=== PATIENT | female | born 1965 | race Caucasian/White ===

== ENCOUNTER 2019-03-16 07:48 | Day surgery (SDC) | payer BC ==
[~2019-03-16 07:48] MED LIST: Lactated Ringers 1,000 ML IV SCH
--- NOTE | 2019-03-16 08:44 | PCM.PREANE ---
Preanesthetic Assessment - Anesthesia/Transfusion/Family Hx Anesthesia History: Prior Anesthesia Without Reaction Family History of Anesthesia Reaction: No Transfusion History: No Prior Transfusion(s) - Review of Systems General: No Symptoms Pulmonary: Cough Cardiovascular: No Symptoms Gastrointestinal: No Symptoms Neurological: No Symptoms Other: Reports: None - Physical Assessment Height: 5 ft 5 in Weight: 64.864 kg ASA Class: 2 Mental Status: Alert & Oriented x3 Airway Class: Mallampati = 2 Dentition: Reports: Normal Dentition ROM/Head Extension: Full Lungs: Clear to Auscultation, Normal Respiratory Effort Cardiovascular: Regular Rate, Regular Rhythm - Allergies Allergies/Adverse Reactions: Allergies Allergy/AdvReac Type Severity Reaction Status Date / Time No Known Allergies Allergy Verified 03/13/19 11:33 - Blood Blood Available: No - Anesthesia Plan Pre-Op Medication Ordered: None - Acknowledgements Anesthesia Type Planned: General Anesthesia Pt an Appropriate Candidate for the Planned Anesthesia: Yes Alternatives and Risks of Anesthesia Discussed w Pt/Guardian: Yes Pt/Guardian Understands and Agrees with Anesthesia Plan: Yes Additional Comments: PMH: asthma-stable, smoker PLAN: tiva PreAnesthesia Questionnaire HEENT History: Reports: None Cardiovascular History: Reports: None Respiratory History: Reports: Asthma Gastrointestinal History: Reports: Other (See Below) Other Gastrointestinal History: dysphagia Genitourinary History: Reports: None Musculoskeletal History: Reports: None Neurological History: Reports: None Psychiatric History: Reports: Anxiety, Depression Endocrine/Metabolic History: Reports: None Hematologic History: Reports: None Immunologic History: Reports: None Oncologic (Cancer) History: Reports: None Dermatologic History: Reports: None - Past Surgical History Head Surgeries/Procedures: Reports: None HEENT Surgical History: Reports: None Cardiovascular Surgical History: Reports: None Respiratory Surgical History: Reports: None GI Surgical History: Reports: None Female Surgical History: Reports: None Neurological Surgical History: Reports: None Musculoskeletal Surgical History: Reports: Carpal Tunnel, Other (See Below) Other Musculoskeletal Surgeries/Procedures:: ham bunionectomy, hx left knee surgery Oncologic Surgical History: Reports: None Dermatological Surgical History: Reports: None - SUBSTANCE USE Smoking Status *Q: Former Smoker Tobacco Use Within Last Twelve Months: Cigarettes Recreational Drug Use History: No - HOME MEDS Home Medications: Home Meds Albuterol Sulfate [Albuterol Sulfate Hfa] 2 puff INH ASDIRECTED PRN 03/13/19 [ History] Budesonide/Formoterol Fumarate [Symbicort 160-4.5 Mcg Inhaler] 2 puff INH DAILY 03/13/19 [History] Escitalopram Oxalate 15 mg PO DAILY 03/13/19 [History] LORazepam 0.5 mg PO BID PRN 03/13/19 [History] Varenicline Tartrate [Chantix] 1 mg PO DAILY 03/13/19 [History] busPIRone [Buspar] 10 mg PO DAILY 03/13/19 [History] - CURRENT (IN HOUSE) MEDS Current Meds: Current Medications Lactated Ringer's (Ringers, Lactated) 1,000 mls @ 125 mls/hr IV ASDIRECTED OSVALDO
[2019-03-16] MEDS ORDERED: Lidocaine 2% 5 ML SDV ONE (08:57)
[2019-03-16] MEDS ORDERED: Propofol 200 MG/20 ML SDV ONE ×2 (08:58→10:13)
--- NOTE | 2019-03-16 10:41 | PCM.OPNOTE ---
- General Post-Op/Procedure Note Date of Surgery/Procedure: 03/16/19 Operative Procedure(s): gastroscopy w bx and colonoscopy Findings: see dict [id number] Pre Op Diagnosis: hx of polyp and dysphagia Post-Op Diagnosis: Same Anesthesia Technique: Moderate Sedation Primary Surgeon: Arpit Oviedo Pathology: egd bx Complications: None Condition: Good
--- NOTE | 2019-03-16 11:46 | OR ---
SURGEON: Arpit Oviedo MD DATE OF PROCEDURE: 03/16/2019 PREOPERATIVE DIAGNOSES: History of colon polyp and dysphagia. PROCEDURES PERFORMED: Esophagogastroduodenoscopy with biopsy and colonoscopy. DESCRIPTION OF PROCEDURE: EGD: The patient was taken to the endoscopy room, and with the EXTERNAL RELATIONS DIRECTOR, Diprivan was administered. A well-lubricated EGD scope was gently inserted through the oropharynx, down the esophagus, passing through the gastroesophageal junction, into the stomach. The mucosa was examined upon the passage. Any etiology will be noted. Once in the stomach, we continued to advance to the distal antrum, passed through the pylorus into the second portion of the duodenum. Again, the mucosa was examined for any abnormality and etiology. The scope was then retrieved back to the stomach and then retroflexed to look at the fundus of the stomach. If a biopsy was indicated, we will biopsy the antrum, body, and gastroesophageal junction. The air will be sucked out while the scope is retrieved to reduce the patient's discomfort. The patient tolerated the procedure well. There were no intraoperative complications. Dr. Oviedo was present through the whole procedure. Prior to surgery, a time-out had been called, the patient identified, procedure identified and antibiotic administered. The patient was taken to the endoscopy room. A time out was called, patient identified, and procedure identified. Diprivan was then administrated. Patient went from awake to sleep, hearing doctor talking or door closing is normal. Perineum inspection and digital examination were then performed. A well- lubricated colonoscope was gently inserted through the rectum, advanced past the rectosigmoid junction, the descending colon, splenic flexure, transverse colon, hepatic flexure, ascending colon, arrived to the cecum. Cecum was identified as dictated in the finding. Then the scope was carefully withdrawn while attention was paid to the mucosal surface for any abnormality. Air will be sucked out during the scope withdrawal. At the rectum, retroflexed to examine any rectal diseases, fistula or hemorrhoids. Patient tolerated procedure well. There were no intraoperative complications, and Dr. Oviedo was present throughout the whole procedure. FINDINGS: EGD findings: 1. The patient is easily sedated with EXTERNAL RELATIONS DIRECTOR and Diprivan, the patient is soundly snoring. 2. Oropharynx and proximal esophagus are free of disease, stricture, inflammation. Distal esophagus at GE junction at 40 shows some mild salmon- colored change suggestive of mild acid reflux. Stomach rugae are normal in appearance. Antrum is a little bit inflamed, mild gastritis. Duodenum is grossly normal. Retroflexed look at the fundus of stomach, there is no hiatal hernia. Biopsy done at antrum, body, GE junction at 40 and sucked out the gas while scope coming out. During the whole study, there is no ulcer observed. A few drop of blood, not blood clot. No bile. No food particle. Colonoscopy findings: 1. The patient is easily sedated with EXTERNAL RELATIONS DIRECTOR and Diprivan, the patient is soundly snoring. 2. Bowel prep is average with a large amount of liquid stool, no semi-formed stool. 3. Colon is rather tortuous at the sigmoid colon requiring some maneuver in order to get to the cecum. Cecum indicated by ileocecal fold, one-to-one indentation, light emittance, and appendiceal orifice. ScopeGuide is pointing south. Mucosa examined upon scope pulling out with constant irrigation. The patient does not have diverticulosis, polyp, mass, growth, inflammation, stricture, ulceration, AV malformation, none of those. The patient has mild anal tag and mild internal hemorrhoid and no external hemorrhoid. The patient would benefit from repeat colonoscopy in 10 years from today or if clinically indicated otherwise. CHARANJIT / GLORY /[id number]
--- NOTE | 2019-03-16 12:25 | PCM.POSTAN ---
POST ANESTHESIA ASSESSMENT - MENTAL STATUS Mental Status: Alert, Oriented - VITAL SIGNS Vital Signs: Last Vital Signs Temp 97.9 F 03/16/19 11:00 Pulse 86 03/16/19 11:00 Resp 14 03/16/19 11:00 BP 121/63 03/16/19 11:00 Pulse Ox 96 03/16/19 11:00 - RESPIRATORY Respiratory Status: Respiratory Rate WNL, Airway Patent, O2 Saturation Stable - CARDIOVASCULAR CV Status: Pulse Rate WNL, Blood Pressure Stable - GASTROINTESTINAL GI Status: No Symptoms - POST OP HYDRATION Hydration Status: Adequate & Stable
--- NOTE | 2019-03-16 12:26 | PCM48HPAN ---
Post Anesthesia Note - EVALUATION WITHIN 48HRS OF ANESTHETIC Vital Signs in Normal Range: Yes Patient Participated in Evaluation: Yes Respiratory Function Stable: Yes Airway Patent: Yes Cardiovascular Function Stable: Yes Hydration Status Stable: Yes Pain Control Satisfactory: Yes Nausea and Vomiting Control Satisfactory: Yes Mental Status Recovered: Yes Vital Signs: Last Vital Signs Temp 97.9 F 03/16/19 11:00 Pulse 86 03/16/19 11:00 Resp 14 03/16/19 11:00 BP 121/63 03/16/19 11:00 Pulse Ox 96 03/16/19 11:00
== END 2019-03-16 11:25 | disposition home or self-care (01) ==
LOC: MW.SDS 07:48
PROVIDERS: ATTEND Surgery
DX: K29.70 Gastritis, unspecified, without bleeding (principal); K64.4 Residual hemorrhoidal skin tags; K64.8 Other hemorrhoids; J45.909 Unspecified asthma, uncomplicated; F17.210 Nicotine dependence, cigarettes, uncomplicated; F32.9 Major depressive disorder, single episode, unspecified; F41.9 Anxiety disorder, unspecified; Z86.010 Personal history of colon polyps
CPT/HCPCS: 36415; 43239; 45378; 81025; 84702; 84703; J2001; J2704; J7120; 88305; 88312

== ENCOUNTER 2019-04-30 13:19 | Observation (INO) | payer BC ==
[2019-04-30] MEDS ORDERED: Albuterol/Ipratropium 3.0-0.5 MG/3 ML Neb Soln ONE ×2 (13:23→13:32)
[2019-04-30] MEDS ORDERED: Albuterol/Ipratropium 3.0-0.5 MG/3 ML Neb Soln NEB ONE ×3 (13:35→14:28)
[2019-04-30] MEDS ORDERED: methylPREDNISolone Sodium Succinate 125 MG/2 ML SDV IVPUSH ONE (13:35)
--- NOTE | 2019-04-30 13:35 | EDM.PDOC ---
ED HPI GENERAL MEDICAL PROBLEM - General Chief Complaint: Respiratory Problem Stated Complaint: TROUBLE BREATHING Time Seen by Provider: 04/30/19 13:35 Source of Information: Reports: Patient History Limitations: Reports: No Limitations - History of Present Illness INITIAL COMMENTS - FREE TEXT/NARRATIVE: HISTORY AND PHYSICAL: History of present illness: Patient is a 53-year-old female presents to the ED with complaint of shortness of breath. Patient has history of asthma on symbicort and rescue inhaler. She states she has been out of her symbicort for a few days but did not realize it and was using the inhaler. She denies cough, fevers, chills, chest pain. O2 on arrival 78%. Review of systems: As per history of present illness and below otherwise all systems reviewed and negative. Past medical history: As per history of present illness and as reviewed below otherwise noncontributory. Surgical history: As per history of present illness and as reviewed below otherwise noncontributory. Social history: No reported history of drug or alcohol abuse. Family history: As per history of present illness and as reviewed below otherwise noncontributory. Physical exam: General: Patient sitting comfortably in no acute distress and nontoxic appearing HEENT: Atraumatic, normocephalic, pupils reactive, negative for conjunctival pallor or scleral icterus, mucous membranes moist, throat clear, neck supple, nontender, trachea midline. No meningeal signs. Lungs: Breath sounds diminished with wheezing throughout all lung izaguirre. Heart: S1S2, regular, negative for clicks, rubs, or overt murmur. Abdomen: Soft, nondistended, nontender. Negative for masses or hepatosplenomegaly. Negative for costovertebral tenderness. No rigidity, rebound , guarding. Pelvis: Stable nontender. Genitourinary: Deferred. Rectal: Deferred. Extremities: Atraumatic, negative for cords or calf pain. Neurovascular unremarkable. Neuro: Awake, alert, oriented. Cranial nerves II through XII unremarkable. Cerebellum unremarkable. Motor and sensory unremarkable throughout. Exam nonfocal. Notes: Patient O2 is low 90s on 2L. She dropped to 87% when turned off. Diagnostics: CBC, CMP, CXR Therapeutics: DuoNeb x 3 125mg Solumedrol IM Prescriptions: Impression: Hypoxia, asthma exacerbation Plan: Discussed with the hospitalist resident, patient accepted for observation for hypoxia and asthma exacerbation. Definitive disposition and diagnosis as appropriate pending reevaluation and review of above. - Related Data Allergies Allergy/AdvReac Type Severity Reaction Status Date / Time No Known Allergies Allergy Verified 04/30/19 13:29 Home Meds: Home Meds Albuterol Sulfate [Albuterol Sulfate Hfa] 2 puff INH ASDIRECTED PRN 03/13/19 [ History] Budesonide/Formoterol Fumarate [Symbicort 160-4.5 Mcg Inhaler] 2 puff INH DAILY 03/13/19 [History] Escitalopram Oxalate 15 mg PO DAILY 03/13/19 [History] Varenicline Tartrate [Chantix] 1 mg PO DAILY 03/13/19 [History] busPIRone [Buspar] 10 mg PO DAILY 03/13/19 [History] Montelukast [Singulair] 10 mg PO DAILY 04/30/19 [History] Past Medical History HEENT History: Reports: None Cardiovascular History: Reports: None Respiratory History: Reports: Asthma, COPD Gastrointestinal History: Reports: Other (See Below) Other Gastrointestinal History: dysphagia Genitourinary History: Reports: None Musculoskeletal History: Reports: None Neurological History: Reports: None Psychiatric History: Reports: Anxiety, Depression Endocrine/Metabolic History: Reports: None Hematologic History: Reports: None Immunologic History: Reports: None Oncologic (Cancer) History: Reports: None Dermatologic History: Reports: None - Infectious Disease History Infectious Disease History: Reports: Chicken Pox - Past Surgical History Head Surgeries/Procedures: Reports: None HEENT Surgical History: Reports: None Cardiovascular Surgical History: Reports: None Respiratory Surgical History: Reports: None GI Surgical History: Reports: None Female Surgical History: Reports: None Neurological Surgical History: Reports: None Musculoskeletal Surgical History: Reports: Carpal Tunnel, Other (See Below) Other Musculoskeletal Surgeries/Procedures:: ham bunionectomy, hx left knee surgery Oncologic Surgical History: Reports: None Dermatological Surgical History: Reports: None Social & Family History - Family History Family Medical History: Noncontributory - Tobacco Use Smoking Status *Q: Former Smoker Used Tobacco, but Quit: Yes Month/Year Tobacco Last Used: 2 months - Recreational Drug Use Recreational Drug Use: No ED ROS GENERAL - Review of Systems Review Of Systems: Comprehensive ROS is negative, except as noted in HPI. ED EXAM, GENERAL - Physical Exam Exam: See Below (see dictation) Course - Vital Signs Last Recorded V/S: Last Vital Signs Temp 97.8 F 04/30/19 13:26 Pulse 90 04/30/19 15:10 Resp 14 04/30/19 15:10 BP 113/70 04/30/19 15:10 Pulse Ox 87 L 04/30/19 15:10 - Orders/Labs/Meds Orders: Active Orders 24 hr Category Date Time Status Admission Status [Patient Status] [ADT] Stat ADT 04/30/19 16:11 Ordered RT Aerosol Therapy [RC] ASDIRECTED Care 04/30/19 13:35 Active RT Aerosol Therapy [RC] ASDIRECTED Care 04/30/19 13:36 Active RT Aerosol Therapy [RC] ASDIRECTED Care 04/30/19 14:28 Active Labs: Laboratory Tests 04/30/19 04/30/19 Range/Units 13:47 13:47 WBC 8.66 (4.0-11.0) K/uL RBC 4.97 (4.30-5.90) M/uL Hgb 15.7 (12.0-16.0) g/dL Hct 47.3 H (36.0-46.0) % MCV 95.2 (80.0-98.0) fL MCH 31.6 (27.0-32.0) pg MCHC 33.2 (31.0-37.0) g/dL RDW Std Deviation 46.4 (28.0-62.0) fl RDW Coeff of Rudy 13 (11.0-15.0) % Plt Count 311 (150-400) K/uL MPV 10.00 (7.40-12.00) fL Neut % (Auto) 41.4 L (48.0-80.0) % Lymph % (Auto) 40.2 H (16.0-40.0) % Archuleta % (Auto) 6.5 (0.0-15.0) % Eos % (Auto) 11.2 H (0.0-7.0) % Baso % (Auto) 0.7 (0.0-1.5) % Neut # (Auto) 3.6 (1.4-5.7) K/uL Lymph # (Auto) 3.5 H (0.6-2.4) K/uL Archuleta # (Auto) 0.6 (0.0-0.8) K/uL Eos # (Auto) 1.0 H (0.0-0.7) K/uL Baso # (Auto) 0.1 (0.0-0.1) K/uL Nucleated RBC % 0.0 /100WBC Nucleated RBCs # 0 K/uL Sodium 143 (136-145) mmol/L Potassium 4.1 (3.5-5.1) mmol/L Chloride 107 (98-107) mmol/L Carbon Dioxide 26.4 (21.0-32.0) mmol/L BUN 10 (7.0-18.0) mg/dL Creatinine 1.0 (0.6-1.0) mg/dL Est Cr Clr Drug Dosing 57.87 mL/min Estimated GFR (MDRD) 57.8 ml/min Glucose 101 (74-106) mg/dL Calcium 10.1 (8.5-10.1) mg/dL Total Bilirubin 0.3 (0.2-1.0) mg/dL AST 23 (15-37) IU/L ALT 28 (14-63) IU/L Alkaline Phosphatase 80 (46-116) U/L Total Protein 8.5 H (6.4-8.2) g/dL Albumin 4.4 (3.4-5.0) g/dL Globulin 4.1 H (2.6-4.0) g/dL Albumin/Globulin Ratio 1.1 (0.9-1.6) Meds: Medications Discontinued Medications Generic Name Dose Route Start Last Admin Trade Name Alfonsoq PRN Reason Stop Dose Admin Albuterol/Ipratropium Confirm 04/30/19 13:23 04/30/19 13:35 Duoneb 3.0-0.5 Mg/3 Ml Administered 04/30/19 13:24 3 ml Dose Administration 3 ml .ROUTE .STK-MED ONE Albuterol/Ipratropium Confirm 04/30/19 13:32 04/30/19 13:35 Duoneb 3.0-0.5 Mg/3 Ml Administered 04/30/19 13:33 3 ml Dose Administration 3 ml .ROUTE .STK-MED ONE Albuterol/Ipratropium 3 ml 04/30/19 13:35 04/30/19 13:36 Duoneb 3.0-0.5 Mg/3 Ml NEB 04/30/19 13:36 Not Given ONETIME ONE Albuterol/Ipratropium 3 ml 04/30/19 13:35 04/30/19 13:36 Duoneb 3.0-0.5 Mg/3 Ml NEB 04/30/19 13:36 Not Given ONETIME ONE Albuterol/Ipratropium 3 ml 04/30/19 14:28 04/30/19 14:35 Duoneb 3.0-0.5 Mg/3 Ml NEB 04/30/19 14:29 3 ml ONETIME ONE Administration Methylprednisolone Sodium Succinate 125 mg 04/30/19 13:35 04/30/19 13:59 Solu-Medrol IVPUSH 04/30/19 13:36 125 mg ONETIME ONE Administration Departure - Departure Time of Disposition: 16:13 Disposition: Refer to Observation Condition: Good Clinical Impression: Hypoxia, Asthma exacerbation - Discharge Information Referrals: PCP,Unknown [Primary Care Provider] - Forms: ED Department Discharge - My Orders Last 24 Hours: My Active Orders 04/30/19 13:35 RT Aerosol Therapy [RC] ASDIRECTED 04/30/19 13:36 RT Aerosol Therapy [RC] ASDIRECTED 04/30/19 14:28 RT Aerosol Therapy [RC] ASDIRECTED 04/30/19 16:11 Admission Status [Patient Status] [ADT] Stat - Assessment/Plan Last 24 Hours: My Active Orders 04/30/19 13:35 RT Aerosol Therapy [RC] ASDIRECTED 04/30/19 13:36 RT Aerosol Therapy [RC] ASDIRECTED 04/30/19 14:28 RT Aerosol Therapy [RC] ASDIRECTED 04/30/19 16:11 Admission Status [Patient Status] [ADT] Stat
--- NOTE | 2019-04-30 14:16 | CR ---
Chest: Portable view of the chest was obtained. Comparison: No prior chest x-ray. Questionable nodular densities are noted within both lung bases located medially. Uncertain if this is parenchymal in location or represents artifact. Lungs otherwise are clear. Bony structures are grossly intact. Heart size and mediastinum are normal. Impression: 1. Nodular densities as noted above. Recommend PA and lateral chest x-ray to further evaluate. Noncontrast chest CT could alternatively be obtained. 2. Nothing acute is otherwise seen. Diagnostic code #9 [id number]
[2019-04-30 14:28] LABS: CARBON DIOXIDE,CO2 26.4 mmol/L (21.0-32.0); POTASSIUM,K 4.1 mmol/L (3.5-5.1)
[2019-04-30] MEDS ORDERED: Ondansetron 4 MG Tab.DIS PO PRN (16:26)
[2019-04-30] MEDS ORDERED: Ondansetron 4 MG/2 ML SDV IVPUSH PRN (16:26)
[2019-04-30] MEDS ORDERED: Acetaminophen 325 MG Tab PO PRN (16:26)
[2019-04-30] MEDS ORDERED: Albuterol/Ipratropium 3.0-0.5 MG/3 ML Neb Soln NEB SCH (16:45)
[2019-04-30] MEDS: Enoxaparin 40 MG/0.4 ML Syringe SUBCUT SCH (17:30)
[2019-04-30] MEDS: methylPREDNISolone Sodium Succinate 40 MG/1 ML SDV IV SCH (17:31)
[2019-04-30] MEDS: Albuterol/Ipratropium 3.0-0.5 MG/3 ML Neb Soln NEB SCH ×2 (17:48→21:33)
--- NOTE | 2019-04-30 18:42 | PCM.HP.2 ---
<Asim Jones M - Last Filed: 04/30/19 18:37> H&P History of Present Illness - General Date of Service: 04/30/19 Admit Problem/Dx: Admission Diagnosis/Problem Admission Diagnosis/Problem Hypoxia Source of Information: Patient History Limitations: Reports: No Limitations - History of Present Illness Initial Comments - Free Text/Narative: 53-year-old female admitted for acute asthma exacerbation. She complains of SOB for the past 4-5 days. She ran out of her symbicort inhaler and has had to use her albuterol inhaler much more frequently. No recent history of immobility. Denies fevers, chills, chest pain nausea, vomiting, diarrhea, blood in stool or blood in urine. In the ER patient was found to be hypoxic with an O2 sat of 78%. She received 3 doses of duonebs and 1 dose of IV solumedrol 125 mg in the ER. CXR was negative for any acute process. Patient was still requiring 2L of supplemental oxygen and was admitted for further evaluation. - Related Data Allergies/Adverse Reactions: Allergies Allergy/AdvReac Type Severity Reaction Status Date / Time No Known Allergies Allergy Verified 04/30/19 16:48 Home Medications: Home Meds Escitalopram Oxalate 15 mg PO DAILY 03/13/19 [History] busPIRone [Buspar] 10 mg PO DAILY 03/13/19 [History] Montelukast [Singulair] 10 mg PO DAILY 04/30/19 [History] Albuterol Sulfate [Albuterol Sulfate Hfa] 2 puff INH Q4H PRN 30 Days #1 hfa.aer.ad 05/02/19 [Rx] Albuterol [Proventil Neb Soln] 0.63 mg NEB Q4HRRT PRN 30 Days #10 neb 05/02/19 [ Rx] Budesonide/Formoterol Fumarate [Symbicort 160-4.5 Mcg Inhaler] 2 puff INH DAILY 30 Days #1 hfa.aer.ad 05/02/19 [Rx] predniSONE [Prednisone] 40 mg PO DAILY 4 Days #8 tablet 05/02/19 [Rx] Past Medical History HEENT History: Reports: None Cardiovascular History: Reports: None Respiratory History: Reports: Asthma, COPD Gastrointestinal History: Reports: Other (See Below) Other Gastrointestinal History: dysphagia Genitourinary History: Reports: None Musculoskeletal History: Reports: None Neurological History: Reports: None Psychiatric History: Reports: Anxiety, Depression Endocrine/Metabolic History: Reports: None Hematologic History: Reports: None Immunologic History: Reports: None Oncologic (Cancer) History: Reports: None Dermatologic History: Reports: None - Infectious Disease History Infectious Disease History: Reports: Chicken Pox, Shingles - Past Surgical History Head Surgeries/Procedures: Reports: None HEENT Surgical History: Reports: None Cardiovascular Surgical History: Reports: None Respiratory Surgical History: Reports: None GI Surgical History: Reports: None Female Surgical History: Reports: None Neurological Surgical History: Reports: None Musculoskeletal Surgical History: Reports: Carpal Tunnel, Other (See Below) Other Musculoskeletal Surgeries/Procedures:: ham bunionectomy, hx left knee surgery Oncologic Surgical History: Reports: None Dermatological Surgical History: Reports: None Social & Family History - Family History Family Medical History: Noncontributory - Tobacco Use Smoking Status *Q: Former Smoker Used Tobacco, but Quit: Yes Month/Year Tobacco Last Used: 6 Second Hand Smoke Exposure: No - Caffeine Use Caffeine Use: Reports: Coffee - Recreational Drug Use Recreational Drug Use: No H&P Review of Systems - Review of Systems: Review Of Systems: Comprehensive ROS is negative, except as noted in HPI. Exam - Exam Exam: See Below - Vital Signs Vital Signs: Last Vital Signs Temp 97.2 F 04/30/19 16:57 Pulse 81 04/30/19 16:57 Resp 18 04/30/19 16:57 BP 120/63 04/30/19 16:57 Pulse Ox 96 04/30/19 16:57 Weight: 64.7 kg - Exam General: Alert, Oriented, Cooperative, Mild Distress HEENT: Conjunctiva Clear, EOMI, Hearing Intact, Posterior Pharynx Clear, Pupils Reactive Neck: Supple, Trachea Midline Lungs: Other (poor aeration bilaterally) Cardiovascular: Regular Rate, Regular Rhythm GI/Abdominal Exam: Normal Bowel Sounds, Soft, Non-Tender, No Distention Extremities: Normal Inspection, No Pedal Edema Peripheral Pulses: 2+: Posterior Tibial (L), Posterior Tibial (R) Skin: Warm, Dry, Intact Neurological: Cranial Nerves Intact, Strength Equal Bilateral, Normal Tone, Sensation Intact Neuro Extensive - Mental Status: Alert, Oriented x3, Normal Mood/Affect Psychiatric: Alert, Normal Affect, Normal Mood - Patient Data Lab Results Last 24 hrs: Laboratory Results - last 24 hr 04/30/19 04/30/19 Range/Units 13:47 13:47 WBC 8.66 (4.0-11.0) K/uL RBC 4.97 (4.30-5.90) M/uL Hgb 15.7 (12.0-16.0) g/dL Hct 47.3 H (36.0-46.0) % MCV 95.2 (80.0-98.0) fL MCH 31.6 (27.0-32.0) pg MCHC 33.2 (31.0-37.0) g/dL RDW Std Deviation 46.4 (28.0-62.0) fl RDW Coeff of Rudy 13 (11.0-15.0) % Plt Count 311 (150-400) K/uL MPV 10.00 (7.40-12.00) fL Neut % (Auto) 41.4 L (48.0-80.0) % Lymph % (Auto) 40.2 H (16.0-40.0) % Sanborn % (Auto) 6.5 (0.0-15.0) % Eos % (Auto) 11.2 H (0.0-7.0) % Baso % (Auto) 0.7 (0.0-1.5) % Neut # (Auto) 3.6 (1.4-5.7) K/uL Lymph # (Auto) 3.5 H (0.6-2.4) K/uL Sanborn # (Auto) 0.6 (0.0-0.8) K/uL Eos # (Auto) 1.0 H (0.0-0.7) K/uL Baso # (Auto) 0.1 (0.0-0.1) K/uL Nucleated RBC % 0.0 /100WBC Nucleated RBCs # 0 K/uL Sodium 143 (136-145) mmol/L Potassium 4.1 (3.5-5.1) mmol/L Chloride 107 (98-107) mmol/L Carbon Dioxide 26.4 (21.0-32.0) mmol/L BUN 10 (7.0-18.0) mg/dL Creatinine 1.0 (0.6-1.0) mg/dL Est Cr Clr Drug Dosing 57.87 mL/min Estimated GFR (MDRD) 57.8 ml/min Glucose 101 (74-106) mg/dL Calcium 10.1 (8.5-10.1) mg/dL Total Bilirubin 0.3 (0.2-1.0) mg/dL AST 23 (15-37) IU/L ALT 28 (14-63) IU/L Alkaline Phosphatase 80 (46-116) U/L Total Protein 8.5 H (6.4-8.2) g/dL Albumin 4.4 (3.4-5.0) g/dL Globulin 4.1 H (2.6-4.0) g/dL Albumin/Globulin Ratio 1.1 (0.9-1.6) Result Diagrams: 04/30/19 13:47 04/30/19 13:47 Problem List Initiated/Reviewed/Updated: Yes Orders Last 24hrs: Active Orders 24 hr Category Date Time Status Admission Status [Patient Status] [ADT] Stat ADT 04/30/19 16:11 Active Oxygen Therapy [RC] PRN Care 04/30/19 16:26 Active RT Aerosol Therapy [RC] ASDIRECTED Care 04/30/19 16:32 Active Up ad Zuleika [RC] ASDIRECTED Care 04/30/19 16:26 Active VTE/DVT Education [RC] PER UNIT ROUTINE Care 04/30/19 16:26 Active Vital Signs [RC] Q4H Care 04/30/19 16:26 Active Regular Diet [DIET] Diet 04/30/19 Dinner Active Acetaminophen [Tylenol] Med 04/30/19 16:26 Active 650 mg PO Q4H PRN Albuterol/Ipratropium [DuoNeb 3.0-0.5 MG/3 ML] Med 04/30/19 18:00 Active 3 ml NEB Q4H Enoxaparin [Lovenox] Med 04/30/19 16:30 Active 40 mg SUBCUT Q24H Escitalopram [Lexapro] Med 05/01/19 09:00 Active 15 mg PO DAILY Montelukast [Singulair] Med 04/30/19 21:00 Active 10 mg PO BEDTIME Ondansetron [Zofran ODT] Med 04/30/19 16:26 Active 4 mg PO Q4H PRN Ondansetron [Zofran] Med 04/30/19 16:26 Active 4 mg IVPUSH Q4H PRN Patient's Own Medication [Ptom] Med 05/01/19 09:00 Active 1 each PO DAILY busPIRone [Buspar] Med 05/01/19 09:00 Active 10 mg PO DAILY methylPREDNISolone Sod Succ [Solu-MEDROL] Med 04/30/19 16:45 Active 40 mg IV Q8H Resuscitation Status Routine Resus Stat 04/30/19 16:26 Ordered Medication Orders Acetaminophen (Tylenol) 650 mg PO Q4H PRN PRN Reason: Pain (Mild 1-3)/fever Albuterol/Ipratropium (Duoneb 3.0-0.5 Mg/3 Ml) 3 ml NEB Q4H [facility] Last Admin: 04/30/19 17:48 Dose: 3 ml Buspirone HCl (Buspar) 10 mg PO DAILY [facility] Enoxaparin Sodium (Lovenox) 40 mg SUBCUT Q24H [facility] Last Admin: 04/30/19 17:30 Dose: 40 mg Escitalopram Oxalate (Lexapro) 15 mg PO DAILY [facility] Methylprednisolone Sodium Succinate (Solu-Medrol) 40 mg IV Q8H [facility] Last Admin: 04/30/19 17:31 Dose: 40 mg Montelukast Sodium (Singulair) 10 mg PO BEDTIME [facility] Ondansetron HCl (Zofran Odt) 4 mg PO Q4H PRN PRN Reason: nausea, able to take PO Ondansetron HCl (Zofran) 4 mg IVPUSH Q4H PRN PRN Reason: Nausea Varenicline Tartrate ([Chantix] 1 Mg) 1 each PO DAILY [facility] Assessment/Plan Comment:: Assessment: 1. Acute hypoxic respiratory failure secondary to acute asthma exacerbation. Plan: 1. Will treat with Duonebs q4h, IV Solumedrol 40 mg q8h and singular 10 mg daily. Will attempt to wean off oxygen tomorrow. Repeat CBC, CMP in the AM. <August Ruvalcaba - Last Filed: 05/02/19 20:18> H&P History of Present Illness - General Admit Problem/Dx: Admission Diagnosis/Problem Admission Diagnosis/Problem Hypoxia Exam - Vital Signs Vital Signs: Last Vital Signs Temp 36.9 C 05/02/19 12:17 Pulse 82 05/02/19 12:17 Resp 16 05/02/19 12:17 BP 121/65 05/02/19 12:17 Pulse Ox 91 L 05/02/19 12:17 - Patient Data Lab Results Last 24 hrs: Laboratory Results - last 24 hr 05/02/19 05/02/19 Range/Units 05:10 05:10 WBC 18.63 H (4.0-11.0) K/uL RBC 4.34 (4.30-5.90) M/uL Hgb 13.5 (12.0-16.0) g/dL Hct 41.0 (36.0-46.0) % MCV 94.5 (80.0-98.0) fL MCH 31.1 (27.0-32.0) pg MCHC 32.9 (31.0-37.0) g/dL RDW Std Deviation 45.7 (28.0-62.0) fl RDW Coeff of Rudy 13 (11.0-15.0) % Plt Count 304 (150-400) K/uL MPV 10.00 (7.40-12.00) fL Neut % (Auto) 92.8 H (48.0-80.0) % Lymph % (Auto) 4.4 L (16.0-40.0) % Sanborn % (Auto) 2.8 (0.0-15.0) % Eos % (Auto) 0.0 (0.0-7.0) % Baso % (Auto) 0.0 (0.0-1.5) % Neut # (Auto) 17.3 H (1.4-5.7) K/uL Lymph # (Auto) 0.8 (0.6-2.4) K/uL Sanborn # (Auto) 0.5 (0.0-0.8) K/uL Eos # (Auto) 0.0 (0.0-0.7) K/uL Baso # (Auto) 0.0 (0.0-0.1) K/uL Nucleated RBC % 0.0 /100WBC Nucleated RBCs # 0 K/uL Sodium 140 (136-145) mmol/L Potassium 4.2 (3.5-5.1) mmol/L Chloride 106 (98-107) mmol/L Carbon Dioxide 27.1 (21.0-32.0) mmol/L BUN 14 (7.0-18.0) mg/dL Creatinine 1.0 (0.6-1.0) mg/dL Est Cr Clr Drug Dosing 57.87 mL/min Estimated GFR (MDRD) 57.8 ml/min Glucose 119 H (74-106) mg/dL Calcium 9.5 (8.5-10.1) mg/dL Result Diagrams: 05/02/19 05:10 05/02/19 05:10 Orders Last 24hrs: Active Orders 24 hr Category Date Time Status Ready for Discharge [RC] PER UNIT ROUTINE Care 05/02/19 11:42 Active Assessment/Plan Comment:: I performed a history and physical exam of the patient and discussed management with resident. I have reviewed the residents note and agree with documented findings and plan unless otherwise specified in my note.
[2019-04-30] MEDS ORDERED: Melatonin 3 MG Tab PO ONE (21:09)
[2019-04-30] MEDS: Montelukast 10 MG Tab PO SCH (21:24)
[2019-05-01] MEDS: methylPREDNISolone Sodium Succinate 40 MG/1 ML SDV IV SCH ×3 (00:25→16:00)
[2019-05-01] MEDS: Albuterol/Ipratropium 3.0-0.5 MG/3 ML Neb Soln NEB SCH ×5 (01:33→17:53)
[2019-05-01 07:26] LABS: CARBON DIOXIDE,CO2 25.9 mmol/L (21.0-32.0); POTASSIUM,K 4.2 mmol/L (3.5-5.1)
[2019-05-01] MEDS: busPIRone 5 MG Tab PO SCH (08:47)
[2019-05-01] MEDS: Escitalopram 10 MG Tab PO SCH (08:48)
[2019-05-01] MEDS ORDERED: Varenicline Tartrate [Chantix] 1 MG PO SCH (09:00)
[2019-05-01] MEDS: Enoxaparin 40 MG/0.4 ML Syringe SUBCUT SCH (15:57)
--- NOTE | 2019-05-01 16:44 | PCM.PN ---
<Asim Jones - Last Filed: 05/01/19 16:40> - General Info Date of Service: 05/01/19 Subjective Update: Patient reports feeling better this morning. She did report that when walking to the bathroom she felt shortness of breath. Denies fevers overnight. Tolerating PO diet well. - Patient Data Vitals - Most Recent: Last Vital Signs Temp 98.8 F 05/01/19 12:00 Pulse 100 05/01/19 12:00 Resp 16 05/01/19 12:00 BP 98/63 05/01/19 12:00 Pulse Ox 94 L 05/01/19 12:00 Weight - Most Recent: 64.7 kg I&O - Last 24 Hours: Intake & Output 05/01/19 05/01/19 05/01/19 06:59 14:59 22:59 Intake Total 420 1564 Output Total 300 1300 Balance 120 264 Lab Results Last 24 Hours: Laboratory Results - last 24 hr 05/01/19 05/01/19 05/01/19 Range/Units 05:57 05:57 05:57 WBC 9.61 (4.0-11.0) K/uL RBC 4.58 (4.30-5.90) M/uL Hgb 14.3 (12.0-16.0) g/dL Hct 42.9 (36.0-46.0) % MCV 93.7 (80.0-98.0) fL MCH 31.2 (27.0-32.0) pg MCHC 33.3 (31.0-37.0) g/dL RDW Std Deviation 45.5 (28.0-62.0) fl RDW Coeff of Rudy 13 (11.0-15.0) % Plt Count 284 (150-400) K/uL MPV 10.00 (7.40-12.00) fL Neut % (Auto) 90.4 H (48.0-80.0) % Lymph % (Auto) 9.1 L (16.0-40.0) % Hamilton % (Auto) 0.4 (0.0-15.0) % Eos % (Auto) 0.0 (0.0-7.0) % Baso % (Auto) 0.1 (0.0-1.5) % Neut # (Auto) 8.7 H (1.4-5.7) K/uL Lymph # (Auto) 0.9 (0.6-2.4) K/uL Hamilton # (Auto) 0.0 (0.0-0.8) K/uL Eos # (Auto) 0.0 (0.0-0.7) K/uL Baso # (Auto) 0.0 (0.0-0.1) K/uL Nucleated RBC % 0.0 /100WBC Nucleated RBCs # 0 K/uL Sodium 139 (136-145) mmol/L Potassium 4.2 (3.5-5.1) mmol/L Chloride 104 (98-107) mmol/L Carbon Dioxide 25.9 (21.0-32.0) mmol/L BUN 12 (7.0-18.0) mg/dL Creatinine 1.0 (0.6-1.0) mg/dL Est Cr Clr Drug Dosing 57.87 mL/min Estimated GFR (MDRD) 57.8 ml/min Glucose 154 H (74-106) mg/dL Calcium 9.9 (8.5-10.1) mg/dL Phosphorus 3.5 (2.6-4.7) mg/dL Magnesium 1.9 (1.8-2.4) mg/dL Med Orders - Current: Current Medications Acetaminophen (Tylenol) 650 mg PO Q4H PRN PRN Reason: Pain (Mild 1-3)/fever Albuterol/Ipratropium (Duoneb 3.0-0.5 Mg/3 Ml) 3 ml NEB Q4H [facility] Last Admin: 05/01/19 13:36 Dose: 3 ml Buspirone HCl (Buspar) 10 mg PO DAILY [facility] Last Admin: 05/01/19 08:47 Dose: 10 mg Enoxaparin Sodium (Lovenox) 40 mg SUBCUT Q24H [facility] Last Admin: 05/01/19 15:57 Dose: 40 mg Escitalopram Oxalate (Lexapro) 15 mg PO DAILY [facility] Last Admin: 05/01/19 08:48 Dose: 15 mg Methylprednisolone Sodium Succinate (Solu-Medrol) 40 mg IV Q8H [facility] Last Admin: 05/01/19 16:00 Dose: 40 mg Montelukast Sodium (Singulair) 10 mg PO BEDTIME [facility] Last Admin: 04/30/19 21:24 Dose: 10 mg Ondansetron HCl (Zofran Odt) 4 mg PO Q4H PRN PRN Reason: nausea, able to take PO Ondansetron HCl (Zofran) 4 mg IVPUSH Q4H PRN PRN Reason: Nausea Discontinued Medications Albuterol/Ipratropium (Duoneb 3.0-0.5 Mg/3 Ml) Confirm Administered Dose 3 ml .ROUTE .STK-MED ONE Stop: 04/30/19 13:24 Last Admin: 04/30/19 13:35 Dose: 3 ml Albuterol/Ipratropium (Duoneb 3.0-0.5 Mg/3 Ml) Confirm Administered Dose 3 ml .ROUTE .STK-MED ONE Stop: 04/30/19 13:33 Last Admin: 04/30/19 13:35 Dose: 3 ml Albuterol/Ipratropium (Duoneb 3.0-0.5 Mg/3 Ml) 3 ml NEB ONETIME ONE Stop: 04/30/19 13:36 Last Admin: 04/30/19 13:36 Dose: Not Given Albuterol/Ipratropium (Duoneb 3.0-0.5 Mg/3 Ml) 3 ml NEB ONETIME ONE Stop: 04/30/19 13:36 Last Admin: 04/30/19 13:36 Dose: Not Given Albuterol/Ipratropium (Duoneb 3.0-0.5 Mg/3 Ml) 3 ml NEB ONETIME ONE Stop: 04/30/19 14:29 Last Admin: 04/30/19 14:35 Dose: 3 ml Albuterol/Ipratropium (Duoneb 3.0-0.5 Mg/3 Ml) 3 ml NEB Q4H [facility] Melatonin (Melatonin) 9 mg PO ONETIME ONE Stop: 04/30/19 21:10 Last Admin: 04/30/19 21:24 Dose: 9 mg Methylprednisolone Sodium Succinate (Solu-Medrol) 125 mg IVPUSH ONETIME ONE Stop: 04/30/19 13:36 Last Admin: 04/30/19 13:59 Dose: 125 mg Varenicline Tartrate ([Chantix] 1 Mg) 1 each PO DAILY [facility] Last Admin: 05/01/19 10:22 Dose: Not Given - Exam General: Alert, Oriented, Cooperative, No Acute Distress Lungs: Other (decreased aeration bilaterally. improved slightly since previous exam.) Cardiovascular: Regular Rate, Regular Rhythm Extremities: Normal Inspection, No Pedal Edema - Problem List Review Problem List Initiated/Reviewed/Updated: Yes - My Orders Last 24 Hours: My Active Orders 04/30/19 16:26 Oxygen Therapy [RC] PRN Up ad Zuleika [RC] ASDIRECTED VTE/DVT Education [RC] PER UNIT ROUTINE Vital Signs [RC] Q4H Acetaminophen [Tylenol] 650 mg PO Q4H PRN Ondansetron [Zofran ODT] 4 mg PO Q4H PRN Ondansetron [Zofran] 4 mg IVPUSH Q4H PRN Resuscitation Status Routine 04/30/19 16:30 Enoxaparin [Lovenox] 40 mg SUBCUT Q24H 04/30/19 16:32 RT Aerosol Therapy [RC] ASDIRECTED 04/30/19 16:45 methylPREDNISolone Sod Succ [Solu-MEDROL] 40 mg IV Q8H 04/30/19 18:00 Albuterol/Ipratropium [DuoNeb 3.0-0.5 MG/3 ML] 3 ml NEB Q4H 04/30/19 21:00 Montelukast [Singulair] 10 mg PO BEDTIME 04/30/19 Dinner Regular Diet [DIET] 05/01/19 09:00 Escitalopram [Lexapro] 15 mg PO DAILY busPIRone [Buspar] 10 mg PO DAILY 05/02/19 05:11 BASIC METABOLIC PANEL,BMP [CHEM] AM CBC WITH AUTO DIFF [HEME] AM - Plan Plan:: Assessment: 1. Acute hypoxic respiratory failure secondary to acute asthma exacerbation. Plan: 1. Will continue Duonebs q4h, IV Solumedrol 40 mg q8h and singular 10 mg daily. Plan to space out IV solumedrol to 40 mg q12h this evening. Will continue to attempt to wean off of oxygen. <August Ruvalcaba - Last Filed: 05/02/19 20:28> - Patient Data Vitals - Most Recent: Last Vital Signs Temp 36.9 C 05/02/19 12:17 Pulse 82 05/02/19 12:17 Resp 16 11/27/19 12:17 BP 121/65 05/02/19 12:17 Pulse Ox 91 L 05/02/19 12:17 I&O - Last 24 Hours: Intake & Output 05/02/19 05/02/19 05/02/19 06:59 14:59 22:59 Intake Total 800 400 Output Total 1000 800 Balance -200 -400 Lab Results Last 24 Hours: Laboratory Results - last 24 hr 05/02/19 05/02/19 Range/Units 05:10 05:10 WBC 18.63 H (4.0-11.0) K/uL RBC 4.34 (4.30-5.90) M/uL Hgb 13.5 (12.0-16.0) g/dL Hct 41.0 (36.0-46.0) % MCV 94.5 (80.0-98.0) fL MCH 31.1 (27.0-32.0) pg MCHC 32.9 (31.0-37.0) g/dL RDW Std Deviation 45.7 (28.0-62.0) fl RDW Coeff of Rudy 13 (11.0-15.0) % Plt Count 304 (150-400) K/uL MPV 10.00 (7.40-12.00) fL Neut % (Auto) 92.8 H (48.0-80.0) % Lymph % (Auto) 4.4 L (16.0-40.0) % Hamilton % (Auto) 2.8 (0.0-15.0) % Eos % (Auto) 0.0 (0.0-7.0) % Baso % (Auto) 0.0 (0.0-1.5) % Neut # (Auto) 17.3 H (1.4-5.7) K/uL Lymph # (Auto) 0.8 (0.6-2.4) K/uL Hamilton # (Auto) 0.5 (0.0-0.8) K/uL Eos # (Auto) 0.0 (0.0-0.7) K/uL Baso # (Auto) 0.0 (0.0-0.1) K/uL Nucleated RBC % 0.0 /100WBC Nucleated RBCs # 0 K/uL Sodium 140 (136-145) mmol/L Potassium 4.2 (3.5-5.1) mmol/L Chloride 106 (98-107) mmol/L Carbon Dioxide 27.1 (21.0-32.0) mmol/L BUN 14 (7.0-18.0) mg/dL Creatinine 1.0 (0.6-1.0) mg/dL Est Cr Clr Drug Dosing 57.87 mL/min Estimated GFR (MDRD) 57.8 ml/min Glucose 119 H (74-106) mg/dL Calcium 9.5 (8.5-10.1) mg/dL Med Orders - Current: Current Medications Discontinued Medications Acetaminophen (Tylenol) 650 mg PO Q4H PRN PRN Reason: Pain (Mild 1-3)/fever Albuterol/Ipratropium (Duoneb 3.0-0.5 Mg/3 Ml) Confirm Administered Dose 3 ml .ROUTE .STK-MED ONE Stop: 04/30/19 13:24 Last Admin: 04/30/19 13:35 Dose: 3 ml Albuterol/Ipratropium (Duoneb 3.0-0.5 Mg/3 Ml) Confirm Administered Dose 3 ml .ROUTE .STK-MED ONE Stop: 04/30/19 13:33 Last Admin: 04/30/19 13:35 Dose: 3 ml Albuterol/Ipratropium (Duoneb 3.0-0.5 Mg/3 Ml) 3 ml NEB ONETIME ONE Stop: 04/30/19 13:36 Last Admin: 04/30/19 13:36 Dose: Not Given Albuterol/Ipratropium (Duoneb 3.0-0.5 Mg/3 Ml) 3 ml NEB ONETIME ONE Stop: 04/30/19 13:36 Last Admin: 04/30/19 13:36 Dose: Not Given Albuterol/Ipratropium (Duoneb 3.0-0.5 Mg/3 Ml) 3 ml NEB ONETIME ONE Stop: 04/30/19 14:29 Last Admin: 04/30/19 14:35 Dose: 3 ml Albuterol/Ipratropium (Duoneb 3.0-0.5 Mg/3 Ml) 3 ml NEB Q4H [facility] Albuterol/Ipratropium (Duoneb 3.0-0.5 Mg/3 Ml) 3 ml NEB Q4H [facility] Last Admin: 05/01/19 17:53 Dose: 3 ml Albuterol/Ipratropium (Duoneb 3.0-0.5 Mg/3 Ml) 3 ml NEB Q6H [facility] Last Admin: 05/01/19 18:05 Dose: Not Given Albuterol/Ipratropium (Duoneb 3.0-0.5 Mg/3 Ml) 3 ml NEB Q6H PRN PRN Reason: Shortness of Breath Last Admin: 05/02/19 12:42 Dose: 3 ml Buspirone HCl (Buspar) 10 mg PO DAILY [facility] Last Admin: 05/02/19 08:36 Dose: 10 mg Enoxaparin Sodium (Lovenox) 40 mg SUBCUT Q24H [facility] Last Admin: 05/01/19 15:57 Dose: 40 mg Escitalopram Oxalate (Lexapro) 15 mg PO DAILY [facility] Last Admin: 05/02/19 08:35 Dose: 15 mg Melatonin (Melatonin) 9 mg PO ONETIME ONE Stop: 04/30/19 21:10 Last Admin: 04/30/19 21:24 Dose: 9 mg Melatonin (Melatonin) 9 mg PO BEDTIME PRN PRN Reason: Insomnia Last Admin: 05/01/19 23:58 Dose: 9 mg Methylprednisolone Sodium Succinate (Solu-Medrol) 125 mg IVPUSH ONETIME ONE Stop: 04/30/19 13:36 Last Admin: 04/30/19 13:59 Dose: 125 mg Methylprednisolone Sodium Succinate (Solu-Medrol) 40 mg IV Q8H [facility] Last Admin: 05/01/19 16:00 Dose: 40 mg Methylprednisolone Sodium Succinate (Solu-Medrol) 40 mg IVPUSH Q12H [facility] Last Admin: 05/02/19 10:16 Dose: 40 mg Montelukast Sodium (Singulair) 10 mg PO BEDTIME [facility] Last Admin: 05/01/19 22:01 Dose: 10 mg Ondansetron HCl (Zofran Odt) 4 mg PO Q4H PRN PRN Reason: nausea, able to take PO Ondansetron HCl (Zofran) 4 mg IVPUSH Q4H PRN PRN Reason: Nausea Varenicline Tartrate ([Chantix] 1 Mg) 1 each PO DAILY [facility] Last Admin: 11/26/19 10:22 Dose: Not Given - Plan Plan:: I have seen and evaluated the patient and agree with the residents note unless specified in my note
[2019-05-01] MEDS ORDERED: Albuterol/Ipratropium 3.0-0.5 MG/3 ML Neb Soln NEB SCH (18:00)
[2019-05-01] MEDS ORDERED: methylPREDNISolone Sodium Succinate 40 MG/1 ML SDV IV SCH (18:01)
[2019-05-01] MEDS: Montelukast 10 MG Tab PO SCH (22:01)
[2019-05-01] MEDS: methylPREDNISolone Sodium Succinate 40 MG/1 ML SDV IVPUSH SCH (22:05)
[2019-05-01] MEDS ORDERED: Melatonin 3 MG Tab PO PRN (23:40)
[2019-05-02 05:55] LABS: CARBON DIOXIDE,CO2 27.1 mmol/L (21.0-32.0); POTASSIUM,K 4.2 mmol/L (3.5-5.1)
[2019-05-02] MEDS: Albuterol/Ipratropium 3.0-0.5 MG/3 ML Neb Soln NEB PRN ×2 (07:20→12:42)
[2019-05-02] MEDS: Escitalopram 10 MG Tab PO SCH (08:35)
[2019-05-02] MEDS: busPIRone 5 MG Tab PO SCH (08:36)
[2019-05-02] MEDS: methylPREDNISolone Sodium Succinate 40 MG/1 ML SDV IVPUSH SCH (10:16)
--- NOTE | 2019-05-02 11:59 | PCM.DCSUM1 ---
<Asim Jones M - Last Filed: 05/02/19 11:56> Discharge Summary - Hospital Course Free Text/Narrative:: 53-year-old female admitted for acute hypoxic respiratory failure secondary to asthma exacerbation. She reports running out of her symbicort and had been experiencing shortness of breath for a few days before coming to the hospital. She was treated with duonebs and IV solumedrol during her stay. On day of discharge, she was successfully weaned off of oxygen and reported feeling better. Patient discharged on prednisone 40 mg qd x 4 days and refills of symbicort, albuterol inhaler and nebulizer treatments were provided. - Discharge Data Discharge Date: 05/02/19 Discharge Disposition: Home, Self-Care 01 Condition: Stable - Referral to Home Health Primary Care Physician: PCP Unknown - Patient Instructions Diet: Usual Diet as Tolerated Activity: As Tolerated Notify Provider of: Fever, Increased Pain, Swelling and Redness, Drainage, Nausea and/or Vomiting - Discharge Plan *PRESCRIPTION DRUG MONITORING PROGRAM REVIEWED*: Not Applicable *COPY OF PRESCRIPTION DRUG MONITORING REPORT IN PATIENT FORREST: Not Applicable Prescriptions/Med Rec: Albuterol [Proventil Neb Soln] 0.63 mg NEB Q4HRRT PRN 30 Days #10 neb PRN Reason: Shortness Of Breath Albuterol Sulfate [Albuterol Sulfate Hfa] 2 puff INH Q4H PRN 30 Days #1 hfa.aer.ad PRN Reason: Shortness Of Breath Budesonide/Formoterol Fumarate [Symbicort 160-4.5 Mcg Inhaler] 2 puff INH DAILY 30 Days #1 hfa.aer.ad predniSONE [Prednisone] 40 mg PO DAILY 4 Days #8 tablet Home Medications: Home Meds Escitalopram Oxalate 15 mg PO DAILY 03/13/19 [History] busPIRone [Buspar] 10 mg PO DAILY 03/13/19 [History] Montelukast [Singulair] 10 mg PO DAILY 04/30/19 [History] Albuterol Sulfate [Albuterol Sulfate Hfa] 2 puff INH Q4H PRN 30 Days #1 hfa.aer.ad 05/02/19 [Rx] Albuterol [Proventil Neb Soln] 0.63 mg NEB Q4HRRT PRN 30 Days #10 neb 05/02/19 [ Rx] Budesonide/Formoterol Fumarate [Symbicort 160-4.5 Mcg Inhaler] 2 puff INH DAILY 30 Days #1 hfa.aer.ad 05/02/19 [Rx] predniSONE [Prednisone] 40 mg PO DAILY 4 Days #8 tablet 05/02/19 [Rx] Patient Handouts: Budesonide; Formoterol Inhalation, Albuterol inhalation aerosol, Asthma, Adult, [id number], Prednisone tablets, Albuterol inhalation solution Referrals: [facility] [Outside] Awilda Simmons DO [Resident] - 05/10/19 9:30 am - Discharge Summary/Plan Comment DC Time >30 min.: No - Patient Data Vitals - Most Recent: Last Vital Signs Temp 97.7 F 05/02/19 07:45 Pulse 93 05/02/19 07:45 Resp 18 05/02/19 07:45 BP 131/83 05/02/19 07:45 Pulse Ox 91 L 05/02/19 07:45 Weight - Most Recent: 64.7 kg I&O - Last 24 hours: Intake & Output 05/01/19 05/02/19 05/02/19 22:59 06:59 14:59 Intake Total 1564 800 Output Total 1300 1000 Balance 264 -200 Lab Results - Last 24 hrs: Laboratory Results - last 24 hr 05/02/19 05/02/19 Range/Units 05:10 05:10 WBC 18.63 H (4.0-11.0) K/uL RBC 4.34 (4.30-5.90) M/uL Hgb 13.5 (12.0-16.0) g/dL Hct 41.0 (36.0-46.0) % MCV 94.5 (80.0-98.0) fL MCH 31.1 (27.0-32.0) pg MCHC 32.9 (31.0-37.0) g/dL RDW Std Deviation 45.7 (28.0-62.0) fl RDW Coeff of Rudy 13 (11.0-15.0) % Plt Count 304 (150-400) K/uL MPV 10.00 (7.40-12.00) fL Neut % (Auto) 92.8 H (48.0-80.0) % Lymph % (Auto) 4.4 L (16.0-40.0) % [place] % (Auto) 2.8 (0.0-15.0) % Eos % (Auto) 0.0 (0.0-7.0) % Baso % (Auto) 0.0 (0.0-1.5) % Neut # (Auto) 17.3 H (1.4-5.7) K/uL Lymph # (Auto) 0.8 (0.6-2.4) K/uL [place] # (Auto) 0.5 (0.0-0.8) K/uL Eos # (Auto) 0.0 (0.0-0.7) K/uL Baso # (Auto) 0.0 (0.0-0.1) K/uL Nucleated RBC % 0.0 /100WBC Nucleated RBCs # 0 K/uL Sodium 140 (136-145) mmol/L Potassium 4.2 (3.5-5.1) mmol/L Chloride 106 (98-107) mmol/L Carbon Dioxide 27.1 (21.0-32.0) mmol/L BUN 14 (7.0-18.0) mg/dL Creatinine 1.0 (0.6-1.0) mg/dL Est Cr Clr Drug Dosing 57.87 mL/min Estimated GFR (MDRD) 57.8 ml/min Glucose 119 H (74-106) mg/dL Calcium 9.5 (8.5-10.1) mg/dL Med Orders - Current: Current Medications Acetaminophen (Tylenol) 650 mg PO Q4H PRN PRN Reason: Pain (Mild 1-3)/fever Albuterol/Ipratropium (Duoneb 3.0-0.5 Mg/3 Ml) 3 ml NEB Q6H PRN PRN Reason: Shortness of Breath Last Admin: 05/02/19 07:20 Dose: 3 ml Buspirone HCl (Buspar) 10 mg PO DAILY PENDING SALE TO [facility] Last Admin: 05/02/19 08:36 Dose: 10 mg Enoxaparin Sodium (Lovenox) 40 mg SUBCUT Q24H PENDING SALE TO [facility] Last Admin: 05/01/19 15:57 Dose: 40 mg Escitalopram Oxalate (Lexapro) 15 mg PO DAILY PENDING SALE TO [facility] Last Admin: 05/02/19 08:35 Dose: 15 mg Melatonin (Melatonin) 9 mg PO BEDTIME PRN PRN Reason: Insomnia Last Admin: 05/01/19 23:58 Dose: 9 mg Methylprednisolone Sodium Succinate (Solu-Medrol) 40 mg IVPUSH Q12H OSVAL[facility] Last Admin: 05/02/19 10:16 Dose: 40 mg Montelukast Sodium (Singulair) 10 mg PO BEDTIME OSVALDO Last Admin: 05/01/19 22:01 Dose: 10 mg Ondansetron HCl (Zofran Odt) 4 mg PO Q4H PRN PRN Reason: nausea, able to take PO Ondansetron HCl (Zofran) 4 mg IVPUSH Q4H PRN PRN Reason: Nausea Discontinued Medications Albuterol/Ipratropium (Duoneb 3.0-0.5 Mg/3 Ml) Confirm Administered Dose 3 ml .ROUTE .STK-MED ONE Stop: 04/30/19 13:24 Last Admin: 04/30/19 13:35 Dose: 3 ml Albuterol/Ipratropium (Duoneb 3.0-0.5 Mg/3 Ml) Confirm Administered Dose 3 ml .ROUTE .STK-MED ONE Stop: 04/30/19 13:33 Last Admin: 04/30/19 13:35 Dose: 3 ml Albuterol/Ipratropium (Duoneb 3.0-0.5 Mg/3 Ml) 3 ml NEB ONETIME ONE Stop: 04/30/19 13:36 Last Admin: 04/30/19 13:36 Dose: Not Given Albuterol/Ipratropium (Duoneb 3.0-0.5 Mg/3 Ml) 3 ml NEB ONETIME ONE Stop: 04/30/19 13:36 Last Admin: 04/30/19 13:36 Dose: Not Given Albuterol/Ipratropium (Duoneb 3.0-0.5 Mg/3 Ml) 3 ml NEB ONETIME ONE Stop: 04/30/19 14:29 Last Admin: 04/30/19 14:35 Dose: 3 ml Albuterol/Ipratropium (Duoneb 3.0-0.5 Mg/3 Ml) 3 ml NEB Q4H OSVALDO Albuterol/Ipratropium (Duoneb 3.0-0.5 Mg/3 Ml) 3 ml NEB Q4H OSVALDO Last Admin: 05/01/19 17:53 Dose: 3 ml Albuterol/Ipratropium (Duoneb 3.0-0.5 Mg/3 Ml) 3 ml NEB Q6H PENDING SALE TO [facility] Last Admin: 05/01/19 18:05 Dose: Not Given Melatonin (Melatonin) 9 mg PO ONETIME ONE Stop: 04/30/19 21:10 Last Admin: 04/30/19 21:24 Dose: 9 mg Methylprednisolone Sodium Succinate (Solu-Medrol) 125 mg IVPUSH ONETIME ONE Stop: 04/30/19 13:36 Last Admin: 04/30/19 13:59 Dose: 125 mg Methylprednisolone Sodium Succinate (Solu-Medrol) 40 mg IV Q8H PENDING SALE TO [facility] Last Admin: 05/01/19 16:00 Dose: 40 mg Varenicline Tartrate ([Chantix] 1 Mg) 1 each PO DAILY PENDING SALE TO [facility] Last Admin: 05/01/19 10:22 Dose: Not Given <August Ruvalcaba - Last Filed: 05/03/19 19:56> Discharge Summary - Hospital Course HPI Initial Comments: I have seen and evaluated the patient and agree with the residents note unless specified in my note - Referral to Home Health Primary Care Physician: PCP Unknown - Patient Data Vitals - Most Recent: Last Vital Signs Temp 36.9 C 05/02/19 12:17 Pulse 82 05/02/19 12:17 Resp 16 05/02/19 12:17 BP 121/65 05/02/19 12:17 Pulse Ox 91 L 05/02/19 12:17 Med Orders - Current: Current Medications Discontinued Medications Acetaminophen (Tylenol) 650 mg PO Q4H PRN PRN Reason: Pain (Mild 1-3)/fever Albuterol/Ipratropium (Duoneb 3.0-0.5 Mg/3 Ml) Confirm Administered Dose 3 ml .ROUTE .STK-MED ONE Stop: 04/30/19 13:24 Last Admin: 04/30/19 13:35 Dose: 3 ml Albuterol/Ipratropium (Duoneb 3.0-0.5 Mg/3 Ml) Confirm Administered Dose 3 ml .ROUTE .STK-MED ONE Stop: 04/30/19 13:33 Last Admin: 04/30/19 13:35 Dose: 3 ml Albuterol/Ipratropium (Duoneb 3.0-0.5 Mg/3 Ml) 3 ml NEB ONETIME ONE Stop: 04/30/19 13:36 Last Admin: 04/30/19 13:36 Dose: Not Given Albuterol/Ipratropium (Duoneb 3.0-0.5 Mg/3 Ml) 3 ml NEB ONETIME ONE Stop: 04/30/19 13:36 Last Admin: 04/30/19 13:36 Dose: Not Given Albuterol/Ipratropium (Duoneb 3.0-0.5 Mg/3 Ml) 3 ml NEB ONETIME ONE Stop: 04/30/19 14:29 Last Admin: 04/30/19 14:35 Dose: 3 ml Albuterol/Ipratropium (Duoneb 3.0-0.5 Mg/3 Ml) 3 ml NEB Q4H OSVALDO Albuterol/Ipratropium (Duoneb 3.0-0.5 Mg/3 Ml) 3 ml NEB Q4H PENDING SALE TO [facility] Last Admin: 05/01/19 17:53 Dose: 3 ml Albuterol/Ipratropium (Duoneb 3.0-0.5 Mg/3 Ml) 3 ml NEB Q6H PENDING SALE TO [facility] Last Admin: 05/01/19 18:05 Dose: Not Given Albuterol/Ipratropium (Duoneb 3.0-0.5 Mg/3 Ml) 3 ml NEB Q6H PRN PRN Reason: Shortness of Breath Last Admin: 05/02/19 12:42 Dose: 3 ml Buspirone HCl (Buspar) 10 mg PO DAILY PENDING SALE TO [facility] Last Admin: 05/02/19 08:36 Dose: 10 mg Enoxaparin Sodium (Lovenox) 40 mg SUBCUT Q24H PENDING SALE TO [facility] Last Admin: 05/01/19 15:57 Dose: 40 mg Escitalopram Oxalate (Lexapro) 15 mg PO DAILY PENDING SALE TO [facility] Last Admin: 05/02/19 08:35 Dose: 15 mg Melatonin (Melatonin) 9 mg PO ONETIME ONE Stop: 04/30/19 21:10 Last Admin: 04/30/19 21:24 Dose: 9 mg Melatonin (Melatonin) 9 mg PO BEDTIME PRN PRN Reason: Insomnia Last Admin: 05/01/19 23:58 Dose: 9 mg Methylprednisolone Sodium Succinate (Solu-Medrol) 125 mg IVPUSH ONETIME ONE Stop: 04/30/19 13:36 Last Admin: 04/30/19 13:59 Dose: 125 mg Methylprednisolone Sodium Succinate (Solu-Medrol) 40 mg IV Q8H PENDING SALE TO [facility] Last Admin: 05/01/19 16:00 Dose: 40 mg Methylprednisolone Sodium Succinate (Solu-Medrol) 40 mg IVPUSH Q12H PENDING SALE TO [facility] Last Admin: 05/02/19 10:16 Dose: 40 mg Montelukast Sodium (Singulair) 10 mg PO BEDTIME PENDING SALE TO [facility] Last Admin: 05/01/19 22:01 Dose: 10 mg Ondansetron HCl (Zofran Odt) 4 mg PO Q4H PRN PRN Reason: nausea, able to take PO Ondansetron HCl (Zofran) 4 mg IVPUSH Q4H PRN PRN Reason: Nausea Varenicline Tartrate ([Chantix] 1 Mg) 1 each PO DAILY PENDING SALE TO [facility] Last Admin: 05/01/19 10:22 Dose: Not Given
== END 2019-05-02 12:55 | disposition home or self-care (01) ==
LOC: MW.ED 13:19 → MW.MS 16:21
PROVIDERS: ADMIT Student in an Organized Health Care Education/Training Program; ATTEND Student in an Organized Health Care Education/Training Program
DX: J96.01 Acute respiratory failure with hypoxia (principal); J45.901 Unspecified asthma with (acute) exacerbation; J44.9 Chronic obstructive pulmonary disease, unspecified; F32.9 Major depressive disorder, single episode, unspecified; F41.9 Anxiety disorder, unspecified; Z87.891 Personal history of nicotine dependence; Z79.899 Other long term (current) drug therapy
CPT/HCPCS: 36415; 71045; 80048; 80053; 83735; 84100; 85025; 94640; 99285; A9270; J1650; J2920; J2930; J7620-GY

== ENCOUNTER 2019-06-11 16:42 | Emergency (ER) | payer BC ==
[2019-06-11] MEDS ORDERED: Albuterol/Ipratropium 3.0-0.5 MG/3 ML Neb Soln NEB ONE (17:38)
[2019-06-11] MEDS ORDERED: methylPREDNISolone Sodium Succinate 125 MG/2 ML SDV IM ONE (17:38)
--- NOTE | 2019-06-11 18:07 | CR ---
Chest: 2 views of the chest were obtained. Comparison: Previous chest x-ray of 04/30/19. Lungs are hyperinflated compatible with emphysematous change. Minimal parenchymal density is seen within the posterior costophrenic angle on the lateral view overlying the spine. Lungs otherwise are clear. Heart size and mediastinum are normal. Bony structures are unremarkable. Impression: 1. Small density overlying the spine with mild posterior costophrenic angle. Consider chest CT to further evaluate and rule out mass which can be performed without contrast. 2. Emphysematous change. 3. No additional abnormality is seen. Diagnostic code #9 This report was dictated in [place] Standard Time
--- NOTE | 2019-06-11 18:08 | EDM.PDOC ---
ED HPI GENERAL MEDICAL PROBLEM - General Chief Complaint: Respiratory Problem Stated Complaint: CHEST CONGESTION Time Seen by Provider: 06/11/19 17:30 Source of Information: Reports: Patient History Limitations: Reports: No Limitations - History of Present Illness INITIAL COMMENTS - FREE TEXT/NARRATIVE: HISTORY AND PHYSICAL: History of present illness: Patient is a 53-year-old female who presents to the emergency room with complaints of shortness of breath. Patient does have a history of asthma and does take Symbicort, duo nebs and pro-air as directed. She states that she has been using her inhalers routinely but feels that she may need a course of antibiotics. Patient denies any fever, chills, headache, change in vision, syncope or near syncope. Denies any chest pain, back pain, abdominal pain, nausea, vomiting, diarrhea, constipation or dysuria. Patient has been eating and drinking appropriately. Review of systems: As per history of present illness and below otherwise all systems reviewed and negative. Past medical history: As per history of present illness and as reviewed below otherwise noncontributory. Surgical history: As per history of present illness and as reviewed below otherwise noncontributory. Social history: See social history for further information Family history: As per history of present illness and as reviewed below otherwise noncontributory. Physical exam: General: Well-developed and well-nourished 53-year-old female. Alert and oriented. Nontoxic-appearing and in no acute distress. HEENT: Atraumatic, normocephalic, pupils equal and reactive bilaterally, negative for conjunctival pallor or scleral icterus, mucous membranes moist, TMs normal bilaterally, throat clear, neck supple, nontender, trachea midline. No drooling or trismus noted. No meningeal signs. No hot potato voice noted. Lungs: Coarse expiratory wheezing bilaterally with poor air exchange throughout , breath sounds equal bilaterally, chest nontender. Heart: S1S2, regular rate and rhythm without overt murmur Abdomen: Soft, nondistended, nontender. Negative for masses or hepatosplenomegaly. Negative for costovertebral tenderness. Pelvis: Stable nontender. Skin: Intact, warm, dry. No lesions or rashes noted. Extremities: Atraumatic, moves all extremities per self without difficulty or deficits, negative for cords or calf pain. Neurovascular unremarkable. Neuro: Awake, alert, oriented. Cranial nerves II through XII unremarkable. Cerebellum unremarkable. Motor and sensory unremarkable throughout. Exam nonfocal. Notes: X-ray shows a small density overlying the spine with a mild posterior costophrenic angle. Consider chest CT to further evaluate and rule out mass which can be performed without contrast. There are some emphysematous changes but otherwise no abnormalities. I did share the x-ray findings with the patient and she would like to move forward with performing the CT of the chest. I did see that she had an x-ray done in April of this last year but there was no lateral view to see if this was on the previous x-rays. CT of the chest was done per patient request. Recommended for follow-up in [address] did show right-sided pneumonia. Antibiotic and steroids will be given for prescription to home. Supportive care measures were reviewed and discussed. Voices understanding and is agreeable to plan of care. Denies any further questions or concerns at this time. Diagnostics: CXR, CT chest Therapeutics: Solu-Medrol, Duo Neb Prescription: Zpak, Medrol Dosepak Impression: Right sided pneumonia Plan: 1. Continue taking/using the inhalers as needed. 2. Follow up with your primary care provider as we discussed. 3. Return to the ED the as needed as we discussed. Definitive disposition and diagnosis as appropriate pending reevaluation and review of above. - Related Data Allergies Allergy/AdvReac Type Severity Reaction Status Date / Time No Known Allergies Allergy Verified 06/11/19 17:12 Home Meds: Home Meds Escitalopram Oxalate 15 mg PO DAILY 03/13/19 [History] busPIRone [Buspar] 10 mg PO DAILY 03/13/19 [History] Montelukast [Singulair] 10 mg PO DAILY 04/30/19 [History] Albuterol Sulfate [Albuterol Sulfate Hfa] 2 puff INH Q4H PRN 30 Days #1 hfa.aer.ad 05/02/19 [Rx] Albuterol [Proventil Neb Soln] 0.63 mg NEB Q4HRRT PRN 30 Days #10 neb 05/02/19 [ Rx] Budesonide/Formoterol Fumarate [Symbicort 160-4.5 Mcg Inhaler] 2 puff INH DAILY 30 Days #1 hfa.aer.ad 05/02/19 [Rx] predniSONE [Prednisone] 40 mg PO DAILY 4 Days #8 tablet 05/02/19 [Rx] Azithromycin [Zithromax] 1 dose PO DAILY 5 Days #6 tab 06/11/19 [Rx] methylPREDNISolone [Medrol] 1 dose PO DAILY 6 Days #1 dospk 06/11/19 [Rx] Past Medical History HEENT History: Reports: None Cardiovascular History: Reports: None Respiratory History: Reports: Asthma, COPD Gastrointestinal History: Reports: Other (See Below) Other Gastrointestinal History: dysphagia Genitourinary History: Reports: None Musculoskeletal History: Reports: None Neurological History: Reports: None Psychiatric History: Reports: Anxiety, Depression Endocrine/Metabolic History: Reports: None Hematologic History: Reports: None Immunologic History: Reports: None Oncologic (Cancer) History: Reports: None Dermatologic History: Reports: None - Infectious Disease History Infectious Disease History: Reports: Chicken Pox, Shingles - Past Surgical History Head Surgeries/Procedures: Reports: None HEENT Surgical History: Reports: None Cardiovascular Surgical History: Reports: None Respiratory Surgical History: Reports: None GI Surgical History: Reports: None Female Surgical History: Reports: None Neurological Surgical History: Reports: None Musculoskeletal Surgical History: Reports: Carpal Tunnel, Other (See Below) Other Musculoskeletal Surgeries/Procedures:: ham bunionectomy, hx left knee surgery Oncologic Surgical History: Reports: None Dermatological Surgical History: Reports: None Social & Family History - Family History Family Medical History: Noncontributory - Tobacco Use Smoking Status *Q: Never Smoker - Caffeine Use Caffeine Use: Reports: None - Recreational Drug Use Recreational Drug Use: No ED ROS GENERAL - Review of Systems Review Of Systems: Comprehensive ROS is negative, except as noted in HPI. ED EXAM, GENERAL - Physical Exam Exam: See Below (See dictation) Course - Vital Signs Last Recorded V/S: Last Vital Signs Temp 97.7 F 06/11/19 17:09 Pulse 77 06/11/19 19:51 Resp 14 06/11/19 19:51 BP 111/69 06/11/19 19:51 Pulse Ox 93 L 06/11/19 19:51 - Orders/Labs/Meds Orders: Active Orders 24 hr Category Date Time Status RT Aerosol Therapy [RC] ASDIRECTED Care 06/11/19 17:38 Active Meds: Medications Discontinued Medications Generic Name Dose Route Start Last Admin Trade Name Freq PRN Reason Stop Dose Admin Albuterol/Ipratropium 3 ml 06/11/19 17:38 06/11/19 17:57 Duoneb 3.0-0.5 Mg/3 Ml NEB 06/11/19 17:39 3 ml ONETIME ONE Administration Methylprednisolone Sodium Succinate 125 mg 06/11/19 17:38 06/11/19 17:46 Solu-Medrol IM 06/11/19 17:39 125 mg ONETIME ONE Administration Departure - Departure Time of Disposition: 19:45 Disposition: Home, Self-Care 01 Clinical Impression: Pneumonia Qualifiers: Pneumonia type: due to unspecified organism Laterality: right Lung location: lower lobe of lung Qualified Code(s): J18.9 - Pneumonia, unspecified organism - Discharge Information Prescriptions: Azithromycin [Zithromax] 1 dose PO DAILY 5 Days #6 tab methylPREDNISolone [Medrol] 1 dose PO DAILY 6 Days #1 dospk Instructions: Community-Acquired Pneumonia, Adult, [id number] Referrals: Awilda Simmons DO [Primary Care Provider] - Forms: ED Department Discharge Additional Instructions: The following information is given to patients seen in the emergency department who are being discharged to home. This information is to outline your options for follow-up care. We provide all patients seen in our emergency department with a follow-up referral. The need for follow-up, as well as the timing and circumstances, are variable depending upon the specifics of your emergency department visit. If you don't have a primary care physician on staff, we will provide you with a referral. We always advise you to contact your personal physician following an emergency department visit to inform them of the circumstance of the visit and for follow-up with them and/or the need for any referrals to a consulting specialist. The emergency department will also refer you to a specialist when appropriate. This referral assures that you have the opportunity for follow-up care with a specialist. All of these measure are taken in an effort to provide you with optimal care, which includes your follow-up. Under all circumstances we always encourage you to contact your private physician who remains a resource for coordinating your care. When calling for follow-up care, please make the office aware that this follow-up is from your recent emergency room visit. If for any reason you are refused follow-up, please contact the [facility] Emergency Department at and asked to speak to the emergency department charge nurse. JANINE [facility] [address] [place] [address] [facility] [address] [place] [address] 1. Continue taking/using the inhalers as needed. 2. Follow up with your primary care provider as we discussed. 3. Return to the ED the as needed as we discussed. Sepsis Event Note - Evaluation Sepsis Screening Result: No Definite Risk - Focused Exam Vital Signs: Vital Signs Temp Pulse Resp BP Pulse Ox 06/11/19 19:51 77 14 111/69 93 L 06/11/19 17:09 97.7 F 93 16 104/71 93 L Date Exam was Performed: 06/11/19 Time Exam was Performed: 21:28 - My Orders Last 24 Hours: My Active Orders 06/11/19 17:38 RT Aerosol Therapy [RC] ASDIRECTED - Assessment/Plan Last 24 Hours: My Active Orders 06/11/19 17:38 RT Aerosol Therapy [RC] ASDIRECTED
--- NOTE | 2019-06-11 19:20 | CT ---
INDICATION: Chest congestion, shortness of breath TECHNIQUE: CT chest without contrast. COMPARISON: None FINDINGS: Cardiovascular structures: Heart size is normal. Coronary artery calcifications. Thoracic aorta and main pulmonary artery are normal in caliber. Mediastinum and cristian: No sign of mass or adenopathy. Calcified bilateral hilar lymph nodes. Lungs: Emphysema. 3 mm subpleural pulmonary nodule left lower lobe image 92 series 202. 4 mm subpleural pulmonary nodule left lower lobe image 87 series 202. Calcified granulomata in both lower lobes. Small amount of scattered opacities throughout the right lung. Pleura and pericardium: No effusions. Chest wall and axilla: No mass or adenopathy. Upper abdomen: Several small fat containing midline ventral hernias. Simple cyst right kidney. Bones: No significant findings. IMPRESSION: Scattered opacities in the right lung concerning for infection. Emphysema. Pulmonary nodules. Follow-up per Fleischner society guidelines recommended as listed below. FLEISCHNER SOCIETY GUIDELINES - SOLID NODULES: MULTIPLE LOW RISK - nodule less than 6 mm: No routine follow-up. - nodule 6-8 mm: CT at 3-6 months, then consider CT at 18-24 months. - nodule greater than 8 mm: CT at 3-6 months, then consider CT at 18-24 months. MULTIPLE HIGH RISK - nodule less than 6 mm: Optional CT at 12 months. - nodule 6-8 mm: CT at 3-6 months, then at 18-24 months. - nodule greater than 8 mm: CT at 3-6 months, then at 18-24 months. Please note that all CT scans at this facility use dose modulation, iterative reconstruction, and/or weight-based dosing when appropriate to reduce radiation dose to as low as reasonably achievable. Dictated by Mirlande Monaco MD @ Jun 11 2019 7:18PM Signed by Dr. Mirlande Monaco @ Jun 11 2019 7:18PM
== END 2019-06-11 19:52 | disposition home or self-care (01) ==
LOC: MW.ED 16:42
DX: J44.0 Chronic obstructive pulmonary disease with (acute) lower respiratory infection (principal); J18.9 Pneumonia, unspecified organism; F32.9 Major depressive disorder, single episode, unspecified; F41.9 Anxiety disorder, unspecified; Z79.51 Long term (current) use of inhaled steroids; Z79.899 Other long term (current) drug therapy
CPT/HCPCS: 71046; 71250; 94640; 96374; 99285; J2930; 99283; J7620-GY

== ENCOUNTER 2019-07-07 12:38 | Observation (INO) | payer BC ==
[2019-07-07] MEDS: Albuterol/Ipratropium 3.0-0.5 MG/3 ML Neb Soln ONE ×2 (12:47→13:07)
[2019-07-07] MEDS ORDERED: methylPREDNISolone Sodium Succinate 125 MG/2 ML SDV IVPUSH ONE (12:48)
--- NOTE | 2019-07-07 12:54 | EDM.PDOC ---
ED HPI GENERAL MEDICAL PROBLEM - General Chief Complaint: Respiratory Problem Stated Complaint: TROUBLE BREATHING Time Seen by Provider: 07/07/19 12:42 Source of Information: Reports: Patient History Limitations: Reports: No Limitations - History of Present Illness INITIAL COMMENTS - FREE TEXT/NARRATIVE: HISTORY OF PRESENT ILLNESS: Patient is a 53-year-old female with history of asthma who presents with worsening dyspnea and wheezing since Tuesday. Patient states this is typical of her usual bad asthma exacerbation. She denies any recent international travel. No fevers or chills. No chest pain. Has been using albuterol inhaler without relief. No leg swelling. No history of thromboembolic disease. No syncope. Denies any rash or neck stiffness. No abdominal pain. No hemoptysis. Not currently on steroid, but has been on steroids 3x in the past month. Last admission for asthma was April 2019. No prior intubations. Patient is not a smoker. REVIEW OF SYSTEMS: Other than the symptoms associated with the present events, the following is reported with regard to recent health: General: (-) fever. HENT: (-) congestion. Respiratory: (+) shortness of breath Cardiovascular: (-) chest pain. GI: (-) abdominal pain. : (-) urinary complaints. Musculoskeletal: (-) other aches or pains. Endocrine: (-) generalized weakness. Neurological: (-) localized weakness. Skin: (-) rash PAST MEDICAL HISTORY: reviewed as per nursing notes SOCIAL HISTORY: reviewed as per nursing notes, MEDICATIONS: Per nurse's note ALLERGIES: Per nurse's note, reviewed by me PHYSICAL EXAMINATION: GENERALIZED APPEARANCE: well developed, well nourished in mild to moderate respiratory distress VITAL SIGNS: Per nurse's note, reviewed by me SKIN: Warm, dry; (-) cyanosis; (-) rash. HEAD: (-) scalp swelling, (-) tenderness. EYES: (-) conjunctival pallor, (-) scleral icterus. ENMT: (-) stridor; mucous membranes moist. NECK: (-) tenderness, (-) stiffness, CHEST AND RESPIRATORY: (-) rales, (-) rhonchi, (+) bilateral expiratory wheezes; breath sounds equal bilaterally. tachypneic HEART AND CARDIOVASCULAR: (-) irregularity; (-) murmur, (-) gallop. ABDOMEN AND GI: Soft; (-) tenderness, (-) guarding, (-) rebound, (-) palpable masses, EXTREMITIES: (-) deformity, (-) edema. (-) calf tenderness or palpable cord NEURO AND PSYCH: Alert. Cranial nerves grossly intact; strength symmetric. gait steady DIAGNOSTICS: CXR: read by radiologist, reviewed by myself EKG: nsr at [address]pm[address] elevation Labs ordered and reviewed by myself EMERGENCY DEPARTMENT COURSE AND TREATMENT: Patient's condition remained stable during Emergency Department evaluation. Initial pulse ox of 88% on RA upon initial presentation to ED, immediately placed on oxygen. Duoneb x 3 ordered, additional albuterol nebs x 2 ordered. Solu-medrol 125 mg IV given. CXR findings noted. She is aware of pulmonary nodules and has followed up with her physician regarding these. Plan is to repeat CT in 12 months.No indication for antibiotics at this time. Despite above intervention, still with mild dyspnea at rest and walking pulse ox of 84%, will require admission. Pulse ox to 93% on 1L at rest. Case d/w Dr. Paulson who kindly agrees to admit. PLAN AND FOLLOW-UP: admit - Related Data Allergies Allergy/AdvReac Type Severity Reaction Status Date / Time No Known Allergies Allergy Verified 07/07/19 12:47 Home Meds: Home Meds Escitalopram Oxalate 15 mg PO DAILY 03/13/19 [History] busPIRone [Buspar] 10 mg PO DAILY 03/13/19 [History] Montelukast [Singulair] 10 mg PO DAILY 04/30/19 [History] Albuterol Sulfate [Albuterol Sulfate Hfa] 2 puff INH Q4H PRN 30 Days #1 hfa.aer.ad 05/02/19 [Rx] Albuterol [Proventil Neb Soln] 0.63 mg NEB Q4HRRT PRN 30 Days #10 neb 05/02/19 [ Rx] Budesonide/Formoterol Fumarate [Symbicort 160-4.5 Mcg Inhaler] 2 puff INH DAILY 30 Days #1 hfa.aer.ad 05/02/19 [Rx] Past Medical History HEENT History: Reports: None Cardiovascular History: Reports: None Respiratory History: Reports: Asthma, COPD Gastrointestinal History: Reports: Other (See Below) Other Gastrointestinal History: dysphagia Genitourinary History: Reports: None Musculoskeletal History: Reports: None Neurological History: Reports: None Psychiatric History: Reports: Anxiety, Depression Endocrine/Metabolic History: Reports: None Hematologic History: Reports: None Immunologic History: Reports: None Oncologic (Cancer) History: Reports: None Dermatologic History: Reports: None - Infectious Disease History Infectious Disease History: Reports: Chicken Pox, Shingles - Past Surgical History Head Surgeries/Procedures: Reports: None HEENT Surgical History: Reports: None Cardiovascular Surgical History: Reports: None Respiratory Surgical History: Reports: None GI Surgical History: Reports: None Female Surgical History: Reports: None Neurological Surgical History: Reports: None Musculoskeletal Surgical History: Reports: Carpal Tunnel, Other (See Below) Other Musculoskeletal Surgeries/Procedures:: ham bunionectomy, hx left knee surgery Oncologic Surgical History: Reports: None Dermatological Surgical History: Reports: None Social & Family History - Family History Family Medical History: Noncontributory - Caffeine Use Caffeine Use: Reports: None ED ROS GENERAL - Review of Systems Review Of Systems: See Below (see dictation) ED EXAM, GENERAL - Physical Exam Exam: See Below (see dictation) Course - Vital Signs Last Recorded V/S: Last Vital Signs Temp 98.1 F 07/07/19 12:46 Pulse 82 07/07/19 14:30 Resp 22 H 07/07/19 14:30 BP 114/62 07/07/19 14:30 Pulse Ox 93 L 07/07/19 14:30 - Orders/Labs/Meds Orders: Active Orders 24 hr Category Date Time Status Admission Status [Patient Status] [ADT] Stat ADT 07/07/19 15:06 Active EKG Documentation Completion [RC] STAT Care 07/07/19 12:47 Active RT Aerosol Therapy [RC] ASDIRECTED Care 07/07/19 13:00 Active RT Aerosol Therapy [RC] ASDIRECTED Care 07/07/19 13:54 Active RT Aerosol Therapy [RC] ASDIRECTED Care 07/07/19 14:23 Active Labs: Laboratory Tests 07/07/19 07/07/19 Range/Units 12:50 12:50 WBC 9.52 (4.0-11.0) K/uL RBC 4.87 (4.30-5.90) M/uL Hgb 15.2 (12.0-16.0) g/dL Hct 46.6 H (36.0-46.0) % MCV 95.7 (80.0-98.0) fL MCH 31.2 (27.0-32.0) pg MCHC 32.6 (31.0-37.0) g/dL RDW Std Deviation 48.4 (28.0-62.0) fl RDW Coeff of Rudy 14 (11.0-15.0) % Plt Count 280 (150-400) K/uL MPV 9.80 (7.40-12.00) fL Neut % (Auto) 52.3 (48.0-80.0) % Lymph % (Auto) 30.0 (16.0-40.0) % [place] % (Auto) 7.4 (0.0-15.0) % Eos % (Auto) 9.9 H (0.0-7.0) % Baso % (Auto) 0.4 (0.0-1.5) % Neut # (Auto) 5.0 (1.4-5.7) K/uL Lymph # (Auto) 2.9 H (0.6-2.4) K/uL [place] # (Auto) 0.7 (0.0-0.8) K/uL Eos # (Auto) 0.9 H (0.0-0.7) K/uL Baso # (Auto) 0.0 (0.0-0.1) K/uL Nucleated RBC % 0.0 /100WBC Nucleated RBCs # 0 K/uL Sodium 145 (136-145) mmol/L Potassium 3.9 (3.5-5.1) mmol/L Chloride 106 (98-107) mmol/L Carbon Dioxide 28.8 (21.0-32.0) mmol/L BUN 15 (7.0-18.0) mg/dL Creatinine 1.0 (0.6-1.0) mg/dL Est Cr Clr Drug Dosing 57.87 mL/min Estimated GFR (MDRD) 57.8 ml/min Glucose 109 H (74-106) mg/dL Calcium 9.9 (8.5-10.1) mg/dL Total Bilirubin 0.6 (0.2-1.0) mg/dL AST 27 (15-37) IU/L ALT 30 (14-63) IU/L Alkaline Phosphatase 80 (46-116) U/L Troponin I < 0.050 (0.000-0.056) ng/mL Total Protein 7.8 (6.4-8.2) g/dL Albumin 4.0 (3.4-5.0) g/dL Globulin 3.8 (2.6-4.0) g/dL Albumin/Globulin Ratio 1.1 (0.9-1.6) Meds: Medications Discontinued Medications Generic Name Dose Route Start Last Admin Trade Name Benjamin PRN Reason Stop Dose Admin Albuterol 2.5 mg 07/07/19 13:53 07/07/19 14:00 Proventil Neb Soln NEB 07/07/19 13:54 2.5 mg ONETIME ONE Administration Albuterol 2.5 mg 07/07/19 14:23 07/07/19 14:38 Proventil Neb Soln NEB 07/07/19 14:24 2.5 mg ONETIME ONE Administration Albuterol/Ipratropium Confirm 07/07/19 12:43 07/07/19 13:07 Duoneb 3.0-0.5 Mg/3 Ml Administered 07/07/19 12:44 3 ml Dose Administration 3 ml .ROUTE .STK-MED ONE Albuterol/Ipratropium 6 ml 07/07/19 13:00 07/07/19 13:16 Duoneb 3.0-0.5 Mg/3 Ml NEB 07/07/19 13:01 3 ml ONETIME ONE Administration Methylprednisolone Sodium Succinate 125 mg 07/07/19 12:48 07/07/19 12:58 Solu-Medrol IVPUSH 07/07/19 12:49 125 mg ONETIME ONE Administration Departure - Departure Time of Disposition: 15:14 Disposition: Refer to Observation Condition: Good Clinical Impression: Asthma with status asthmaticus - Discharge Information *PRESCRIPTION DRUG MONITORING PROGRAM REVIEWED*: Not Applicable *COPY OF PRESCRIPTION DRUG MONITORING REPORT IN PATIENT FORREST: Not Applicable Additional Instructions: The following information is given to patients seen in the emergency department who are being discharged to home. This information is to outline your options for follow-up care. We provide all patients seen in our emergency department with a follow-up referral. The need for follow-up, as well as the timing and circumstances, are variable depending upon the specifics of your emergency department visit. If you don't have a primary care physician on staff, we will provide you with a referral. We always advise you to contact your personal physician following an emergency department visit to inform them of the circumstance of the visit and for follow-up with them and/or the need for any referrals to a consulting specialist. The emergency department will also refer you to a specialist when appropriate. This referral assures that you have the opportunity for follow-up care with a specialist. All of these measure are taken in an effort to provide you with optimal care, which includes your follow-up. Under all circumstances we always encourage you to contact your private physician who remains a resource for coordinating your care. When calling for follow-up care, please make the office aware that this follow-up is from your recent emergency room visit. If for any reason you are refused follow-up, please contact the [facility] Emergency Department at and asked to speak to the emergency department charge nurse. Sepsis Event Note - Evaluation Sepsis Screening Result: No Definite Risk - Focused Exam Vital Signs: Vital Signs Temp Pulse Resp BP Pulse Ox 07/07/19 14:30 82 22 H 114/62 93 L 07/07/19 14:00 84 20 106/61 93 L 07/07/19 13:39 97 22 H 110/76 94 L 07/07/19 12:54 92 L 07/07/19 12:46 98.1 F 102 H 26 H 133/96 H 86 L Date Exam was Performed: 07/07/19 Time Exam was Performed: 15:10 - My Orders Last 24 Hours: My Active Orders 07/07/19 12:47 EKG Documentation Completion [RC] STAT 07/07/19 13:00 RT Aerosol Therapy [RC] ASDIRECTED 07/07/19 13:54 RT Aerosol Therapy [RC] ASDIRECTED 07/07/19 14:23 RT Aerosol Therapy [RC] ASDIRECTED 07/07/19 15:06 Admission Status [Patient Status] [ADT] Stat - Assessment/Plan Last 24 Hours: My Active Orders 07/07/19 12:47 EKG Documentation Completion [RC] STAT 07/07/19 13:00 RT Aerosol Therapy [RC] ASDIRECTED 07/07/19 13:54 RT Aerosol Therapy [RC] ASDIRECTED 07/07/19 14:23 RT Aerosol Therapy [RC] ASDIRECTED 07/07/19 15:06 Admission Status [Patient Status] [ADT] Stat
[2019-07-07] MEDS ORDERED: Albuterol/Ipratropium 3.0-0.5 MG/3 ML Neb Soln NEB ONE (13:00)
[2019-07-07 13:22] LABS: BLOOD UREA NITROGEN,BUN 15 mg/dL (7.0-18.0); CARBON DIOXIDE,CO2 28.8 mmol/L (21.0-32.0); CHLORIDE,CL 106 mmol/L (98-107); GLUCOSE RANDOM 109 mg/dL (74-106); POTASSIUM,K 3.9 mmol/L (3.5-5.1); SODIUM,NA 145 mmol/L (136-145)
--- NOTE | 2019-07-07 13:29 | CR ---
Chest: Portable view of the chest was obtained. Comparison: Prior chest x-ray of 04/30/19. Stable nodules are noted within both lung bases. Lungs show no acute parenchymal change. Diaphragms are flattened compatible with emphysematous change. Heart size and mediastinum are normal. Bony structures are grossly intact. Impression: 1. Emphysematous change. Other findings as noted above. 2. Nothing acute is appreciated. Diagnostic code #2 This report was dictated in [place] Standard Time
[2019-07-07] MEDS ORDERED: Albuterol 0.083% 2.5 MG/3 ML Neb Soln NEB ONE ×2 (13:53→14:23)
--- NOTE | 2019-07-07 15:25 | PCM.HP.2 ---
H&P History of Present Illness - General Date of Service: 07/07/19 Admit Problem/Dx: Admission Diagnosis/Problem Admission Diagnosis/Problem Asthma with status asthmaticus - History of Present Illness Initial Comments - Free Text/Narative: The patient is a 53 year old female with PMH of asthma and anxiety who presented to the ER with worsening shortness of breath, wheezing, and oxygen saturations in the low 80s at home. Has been using her inhalers at home, has needed albuterol more often. Ran out of neb treatments at home. Patient denies fever/chill, recent URI, chest pain, cough, abdominal pain, nausea/vomiting/ diarrhea. States anxiety has been high. Was admitted April 2019 for asthma exacerbation and was seen in the ER in June 2019 for asthma exacerbation but was not admitted at that time. Former smoker. No hx of intubation for asthma exacerbations. In the ER, workup showed CBC and CMP wnl, negative troponin, EKG NSR without ST changes, CXR showed emphysematous changes but nothing acute. Upon arrival in the ER , oxygen saturation was 86% on room air, placed on 4 L and O2 sat increased to 92%. Received several neb treatments and solumedrol. Was able to be weaned off oxygen at rest but with ambulation desatted to 84%. Currently on 1 L. PCP- Dr. Simmons - Related Data Allergies/Adverse Reactions: Allergies Allergy/AdvReac Type Severity Reaction Status Date / Time No Known Allergies Allergy Verified 07/07/19 12:47 Home Medications: Home Meds Escitalopram Oxalate 15 mg PO DAILY 03/13/19 [History] busPIRone [Buspar] 10 mg PO DAILY 03/13/19 [History] Montelukast [Singulair] 10 mg PO DAILY 04/30/19 [History] Albuterol Sulfate [Albuterol Sulfate Hfa] 2 puff INH Q4H PRN 30 Days #1 hfa.aer.ad 05/02/19 [Rx] Albuterol [Proventil Neb Soln] 0.63 mg NEB Q4HRRT PRN 30 Days #10 neb 05/02/19 [ Rx] Budesonide/Formoterol Fumarate [Symbicort 160-4.5 Mcg Inhaler] 2 puff INH DAILY 30 Days #1 hfa.aer.ad 05/02/19 [Rx] Past Medical History HEENT History: Reports: None Cardiovascular History: Reports: None Respiratory History: Reports: Asthma, COPD Gastrointestinal History: Reports: Other (See Below) Other Gastrointestinal History: dysphagia Genitourinary History: Reports: None Musculoskeletal History: Reports: None Neurological History: Reports: None Psychiatric History: Reports: Anxiety, Depression Endocrine/Metabolic History: Reports: None Hematologic History: Reports: None Immunologic History: Reports: None Oncologic (Cancer) History: Reports: None Dermatologic History: Reports: None - Infectious Disease History Infectious Disease History: Reports: Chicken Pox, Shingles - Past Surgical History Head Surgeries/Procedures: Reports: None HEENT Surgical History: Reports: None Cardiovascular Surgical History: Reports: None Respiratory Surgical History: Reports: None GI Surgical History: Reports: None Female Surgical History: Reports: None Neurological Surgical History: Reports: None Musculoskeletal Surgical History: Reports: Carpal Tunnel, Other (See Below) Other Musculoskeletal Surgeries/Procedures:: ham bunionectomy, hx left knee surgery Oncologic Surgical History: Reports: None Dermatological Surgical History: Reports: None Social & Family History - Family History Family Medical History: Noncontributory - Tobacco Use Smoking Status *Q: Never Smoker - Caffeine Use Caffeine Use: Reports: None - Recreational Drug Use Recreational Drug Use: No H&P Review of Systems - Review of Systems: Review Of Systems: See Below General: Reports: No Symptoms HEENT: Reports: No Symptoms Pulmonary: Reports: Shortness of Breath, Wheezing. Denies: Cough Cardiovascular: Reports: No Symptoms Gastrointestinal: Reports: No Symptoms Genitourinary: Reports: No Symptoms Musculoskeletal: Reports: No Symptoms Skin: Reports: No Symptoms Psychiatric: Reports: Anxiety Neurological: Reports: No Symptoms Hematologic/Lymphatic: Reports: No Symptoms Immunologic: Reports: No Symptoms Exam - Exam Exam: See Below - Vital Signs Vital Signs: Last Vital Signs Temp 98.1 F 07/07/19 12:46 Pulse 82 07/07/19 14:30 Resp 22 H 07/07/19 14:30 BP 114/62 07/07/19 14:30 Pulse Ox 93 L 07/07/19 14:30 Weight: 65.771 kg - Exam Quality Assessment: Supplemental Oxygen General: Alert, Oriented, Cooperative HEENT: Conjunctiva Clear, EOMI, Mucosa Moist & [place], Posterior Pharynx Clear Neck: Supple, Trachea Midline Lungs: Clear to Auscultation, Normal Respiratory Effort Cardiovascular: Regular Rate, Regular Rhythm GI/Abdominal Exam: Normal Bowel Sounds, Soft, Non-Tender, No Distention Extremities: No Pedal Edema Skin: Warm, Dry, Intact Psychiatric: Alert, Normal Affect, Anxious - Patient Data Lab Results Last 24 hrs: Laboratory Results - last 24 hr 07/07/19 07/07/19 Range/Units 12:50 12:50 WBC 9.52 (4.0-11.0) K/uL RBC 4.87 (4.30-5.90) M/uL Hgb 15.2 (12.0-16.0) g/dL Hct 46.6 H (36.0-46.0) % MCV 95.7 (80.0-98.0) fL MCH 31.2 (27.0-32.0) pg MCHC 32.6 (31.0-37.0) g/dL RDW Std Deviation 48.4 (28.0-62.0) fl RDW Coeff of Rudy 14 (11.0-15.0) % Plt Count 280 (150-400) K/uL MPV 9.80 (7.40-12.00) fL Neut % (Auto) 52.3 (48.0-80.0) % Lymph % (Auto) 30.0 (16.0-40.0) % [place] % (Auto) 7.4 (0.0-15.0) % Eos % (Auto) 9.9 H (0.0-7.0) % Baso % (Auto) 0.4 (0.0-1.5) % Neut # (Auto) 5.0 (1.4-5.7) K/uL Lymph # (Auto) 2.9 H (0.6-2.4) K/uL [place] # (Auto) 0.7 (0.0-0.8) K/uL Eos # (Auto) 0.9 H (0.0-0.7) K/uL Baso # (Auto) 0.0 (0.0-0.1) K/uL Nucleated RBC % 0.0 /100WBC Nucleated RBCs # 0 K/uL Sodium 145 (136-145) mmol/L Potassium 3.9 (3.5-5.1) mmol/L Chloride 106 (98-107) mmol/L Carbon Dioxide 28.8 (21.0-32.0) mmol/L BUN 15 (7.0-18.0) mg/dL Creatinine 1.0 (0.6-1.0) mg/dL Est Cr Clr Drug Dosing 57.87 mL/min Estimated GFR (MDRD) 57.8 ml/min Glucose 109 H (74-106) mg/dL Calcium 9.9 (8.5-10.1) mg/dL Total Bilirubin 0.6 (0.2-1.0) mg/dL AST 27 (15-37) IU/L ALT 30 (14-63) IU/L Alkaline Phosphatase 80 (46-116) U/L Troponin I < 0.050 (0.000-0.056) ng/mL Total Protein 7.8 (6.4-8.2) g/dL Albumin 4.0 (3.4-5.0) g/dL Globulin 3.8 (2.6-4.0) g/dL Albumin/Globulin Ratio 1.1 (0.9-1.6) Result Diagrams: 07/07/19 12:50 07/07/19 12:50 Sepsis Event Note - Evaluation Sepsis Screening Result: No Definite Risk - Focused Exam Vital Signs: Vital Signs Temp Pulse Resp BP Pulse Ox 07/07/19 14:30 82 22 H 114/62 93 L 07/07/19 14:00 84 20 106/61 93 L 07/07/19 13:39 97 22 H 110/76 94 L 07/07/19 12:54 92 L 07/07/19 12:46 98.1 F 102 H 26 H 133/96 H 86 L Date Exam was Performed: 07/07/19 Time Exam was Performed: 15:26 Problem List Initiated/Reviewed/Updated: Yes Orders Last 24hrs: Active Orders 24 hr Category Date Time Status Admission Status [Patient Status] [ADT] Stat ADT 07/07/19 15:06 Active EKG Documentation Completion [RC] STAT Care 07/07/19 12:47 Active RT Aerosol Therapy [RC] ASDIRECTED Care 07/07/19 13:00 Active RT Aerosol Therapy [RC] ASDIRECTED Care 07/07/19 13:54 Active RT Aerosol Therapy [RC] ASDIRECTED Care 07/07/19 14:23 Active Assessment/Plan Comment:: 1. Admit for observation 2. Code status- Full 3. Vitals per routine 4. I/Os per routine 5. Diet- regular 6. DVT prophylaxis with lovenox 7. Acute hypoxic respiratory failure secondary to asthma exacerbation- duonebs , solumedrol, oxgyen as needed. Wants pulmonology referral to Dr. Gomez in [place]. 8. Chronic anxiety- continue home meds.
[2019-07-07] MEDS ORDERED: Albuterol/Ipratropium 3.0-0.5 MG/3 ML Neb Soln NEB PRN (15:34)
[2019-07-07] MEDS ORDERED: Ondansetron 4 MG/2 ML SDV IVPUSH PRN (15:34)
[2019-07-07] MEDS ORDERED: Acetaminophen 325 MG Tab PO PRN (15:34)
[2019-07-07] MEDS ORDERED: LORazepam 0.5 MG Tab PO PRN (15:39)
[2019-07-07] MEDS ORDERED: Escitalopram 10 MG Tab PO ONE (17:45)
[2019-07-07] MEDS ORDERED: Montelukast 10 MG Tab PO ONE (17:45)
[2019-07-07] MEDS ORDERED: Melatonin 3 MG Tab PO PRN (17:56)
[2019-07-07] MEDS: Enoxaparin 40 MG/0.4 ML Syringe SUBCUT SCH (17:59)
[2019-07-07] MEDS: methylPREDNISolone Sodium Succinate 125 MG/2 ML SDV IVPUSH SCH (17:59)
[2019-07-07] MEDS: Escitalopram 10 MG Tab PO SCH (18:07)
[2019-07-07] MEDS: Albuterol/Ipratropium 3.0-0.5 MG/3 ML Neb Soln NEB SCH ×2 (18:37→21:25)
[2019-07-07] MEDS: busPIRone 5 MG Tab PO SCH (21:19)
[2019-07-08] MEDS: Albuterol/Ipratropium 3.0-0.5 MG/3 ML Neb Soln NEB SCH ×4 (01:02→13:44)
[2019-07-08] MEDS: methylPREDNISolone Sodium Succinate 125 MG/2 ML SDV IVPUSH SCH ×2 (02:54→15:17)
[2019-07-08] MEDS: busPIRone 5 MG Tab PO SCH ×2 (06:36→13:40)
[2019-07-08 06:53] LABS: BLOOD UREA NITROGEN,BUN 20 mg/dL (7.0-18.0); CARBON DIOXIDE,CO2 25.6 mmol/L (21.0-32.0); CHLORIDE,CL 104 mmol/L (98-107); GLUCOSE RANDOM 154 mg/dL (74-106); POTASSIUM,K 4.2 mmol/L (3.5-5.1); SODIUM,NA 141 mmol/L (136-145)
[2019-07-08] MEDS ORDERED: Montelukast 10 MG Tab PO SCH (09:00)
[2019-07-08] MEDS ORDERED: Escitalopram 10 MG Tab PO SCH (09:00)
[2019-07-08] MEDS: Escitalopram 10 MG Tab PO SCH (10:05)
--- NOTE | 2019-07-08 15:05 | PCM.DCSUM1 ---
Discharge Summary - Discharge Data Discharge Date: 07/08/19 Discharge Disposition: Home, Self-Care 01 Condition: Stable - Referral to Home Health Primary Care Physician: PCP Unknown - Patient Summary/Data Hospital Course: 53 year old female with PMH of asthma and anxiety who was admitted for an asthma exacerbation. She presented to the ER with worsening shortness of breath , wheezing, and oxygen saturations in the low 80s at home. In the ER, workup showed CBC and CMP wnl, negative troponin, EKG NSR without ST changes, CXR showed emphysematous changes but nothing acute. Upon arrival in the ER , oxygen saturation was 86% on room air, placed on 4 L and O2 sat increased to 92% . Received several neb treatments and solumedrol. Was able to be weaned off oxygen at rest but with ambulation desatted to 84%. She was admitted overnight and treated with solumedrol, and duonebs. This afternoon she is satting 91% with ambulation on room air and is requesting discharge. She was discharged home on a longer steroid taper due to her recent history of recurrent exacerbations over the past month. Her Albuterol neb and inhaler prescriptions were refilled. She is to follow up with Dr Simmons in the residency clinic. - Discharge Plan *PRESCRIPTION DRUG MONITORING PROGRAM REVIEWED*: Not Applicable *COPY OF PRESCRIPTION DRUG MONITORING REPORT IN PATIENT FORREST: Not Applicable Prescriptions/Med Rec: Albuterol [Proventil Neb Soln] 0.63 mg NEB Q4HRRT PRN 30 Days #30 neb PRN Reason: Shortness Of Breath Albuterol Sulfate [Albuterol Sulfate Hfa] 2 puff INH Q4H PRN 30 Days #1 hfa.aer.ad PRN Reason: Shortness Of Breath predniSONE [Prednisone] See Taper PO DAILY #40 tablet Home Medications: Home Meds Escitalopram Oxalate 15 mg PO DAILY 03/13/19 [History] busPIRone [Buspar] 10 mg PO BID PRN 03/13/19 [History] Montelukast [Singulair] 10 mg PO DAILY 04/30/19 [History] Budesonide/Formoterol Fumarate [Symbicort 160-4.5 Mcg Inhaler] 2 puff INH DAILY 30 Days #1 hfa.aer.ad 05/02/19 [Rx] Albuterol Sulfate [Albuterol Sulfate Hfa] 2 puff INH Q4H PRN 30 Days #1 hfa.aer.ad 07/08/19 [Rx] Albuterol [Proventil Neb Soln] 0.63 mg NEB Q4HRRT PRN 30 Days #30 neb 07/08/19 [ Rx] predniSONE [Prednisone] See Taper PO DAILY #40 tablet 07/08/19 [Rx] - Discharge Summary/Plan Comment DC Time >30 min.: No - Patient Data Vitals - Most Recent: Last Vital Signs Temp 37.2 C 07/08/19 12:50 Pulse 99 07/08/19 12:50 Resp 16 07/08/19 12:50 BP 103/63 07/08/19 12:50 Pulse Ox 91 L 07/08/19 12:50 Weight - Most Recent: 141.9 kg I&O - Last 24 hours: Intake & Output 07/08/19 07/08/19 07/08/19 06:59 14:59 22:59 Intake Total 760 Output Total 300 Balance 460 Lab Results - Last 24 hrs: Laboratory Results - last 24 hr 07/08/19 07/08/19 Range/Units 06:05 06:05 WBC 10.40 (4.0-11.0) K/uL RBC 4.57 (4.30-5.90) M/uL Hgb 14.2 (12.0-16.0) g/dL Hct 42.8 (36.0-46.0) % MCV 93.7 (80.0-98.0) fL MCH 31.1 (27.0-32.0) pg MCHC 33.2 (31.0-37.0) g/dL RDW Std Deviation 47.1 (28.0-62.0) fl RDW Coeff of Rudy 14 (11.0-15.0) % Plt Count 295 (150-400) K/uL MPV 10.00 (7.40-12.00) fL Neut % (Auto) 92.4 H (48.0-80.0) % Lymph % (Auto) 7.4 L (16.0-40.0) % [place] % (Auto) 0.2 (0.0-15.0) % Eos % (Auto) 0.0 (0.0-7.0) % Baso % (Auto) 0.0 (0.0-1.5) % Neut # (Auto) 9.6 H (1.4-5.7) K/uL Lymph # (Auto) 0.8 (0.6-2.4) K/uL [place] # (Auto) 0.0 (0.0-0.8) K/uL Eos # (Auto) 0.0 (0.0-0.7) K/uL Baso # (Auto) 0.0 (0.0-0.1) K/uL Nucleated RBC % 0.0 /100WBC Nucleated RBCs # 0 K/uL Sodium 141 (136-145) mmol/L Potassium 4.2 (3.5-5.1) mmol/L Chloride 104 (98-107) mmol/L Carbon Dioxide 25.6 (21.0-32.0) mmol/L BUN 20 H (7.0-18.0) mg/dL Creatinine 0.9 (0.6-1.0) mg/dL Est Cr Clr Drug Dosing 64.30 mL/min Estimated GFR (MDRD) > 60.0 ml/min Glucose 154 H (74-106) mg/dL Calcium 10.2 H (8.5-10.1) mg/dL Med Orders - Current: Current Medications Acetaminophen (Tylenol) 650 mg PO Q4H PRN PRN Reason: Pain/Fever Albuterol/Ipratropium (Duoneb 3.0-0.5 Mg/3 Ml) 3 ml NEB Q4HRRT [facility] Last Admin: 07/08/19 13:44 Dose: 3 ml Buspirone HCl (Buspar) 10 mg PO TID [facility] Last Admin: 07/08/19 13:40 Dose: 10 mg Enoxaparin Sodium (Lovenox) 40 mg SUBCUT Q24H [facility] Last Admin: 07/07/19 17:59 Dose: 40 mg Escitalopram Oxalate (Lexapro) 10 mg PO DAILY [facility] Last Admin: 07/08/19 10:05 Dose: 10 mg Lorazepam (Ativan) 0.5 mg PO BID PRN PRN Reason: Anxiety Melatonin (Melatonin) 9 mg PO BEDTIME PRN PRN Reason: Insomnia Last Admin: 07/07/19 21:42 Dose: 9 mg Methylprednisolone Sodium Succinate (Solu-Medrol) 125 mg IVPUSH Q12H [facility] Last Admin: 07/08/19 02:54 Dose: 125 mg Montelukast Sodium (Singulair) 10 mg PO DAILY [facility] Last Admin: 07/08/19 10:05 Dose: 10 mg Ondansetron HCl (Zofran) 4 mg IVPUSH Q4H PRN PRN Reason: Nausea/Vomiting Discontinued Medications Albuterol (Proventil Neb Soln) 2.5 mg NEB ONETIME ONE Stop: 07/07/19 13:54 Last Admin: 07/07/19 14:00 Dose: 2.5 mg Albuterol (Proventil Neb Soln) 2.5 mg NEB ONETIME ONE Stop: 07/07/19 14:24 Last Admin: 07/07/19 14:38 Dose: 2.5 mg Albuterol/Ipratropium (Duoneb 3.0-0.5 Mg/3 Ml) Confirm Administered Dose 3 ml .ROUTE .STK-MED ONE Stop: 07/07/19 12:44 Last Admin: 07/07/19 13:07 Dose: 3 ml Albuterol/Ipratropium (Duoneb 3.0-0.5 Mg/3 Ml) 6 ml NEB ONETIME ONE Stop: 07/07/19 13:01 Last Admin: 07/07/19 13:16 Dose: 3 ml Albuterol/Ipratropium (Duoneb 3.0-0.5 Mg/3 Ml) 3 ml NEB Q4HRRT PRN PRN Reason: Shortness of Breath Escitalopram Oxalate (Lexapro) 15 mg PO DAILY [facility] Escitalopram Oxalate (Lexapro) 15 mg PO ONETIME ONE Stop: 07/07/19 17:46 Last Admin: 07/07/19 18:09 Dose: Not Given Methylprednisolone Sodium Succinate (Solu-Medrol) 125 mg IVPUSH ONETIME ONE Stop: 07/07/19 12:49 Last Admin: 07/07/19 12:58 Dose: 125 mg Montelukast Sodium (Singulair) 10 mg PO ONETIME ONE Stop: 07/07/19 17:46 Last Admin: 07/07/19 18:07 Dose: 10 mg
[2019-07-08] MEDS: Enoxaparin 40 MG/0.4 ML Syringe SUBCUT SCH (19:41)
== END 2019-07-08 15:45 | disposition home or self-care (01) ==
LOC: MW.ED 12:38 → MW.MS 15:06
PROVIDERS: ADMIT Internal Medicine; ATTEND Internal Medicine
DX: J44.1 Chronic obstructive pulmonary disease with (acute) exacerbation (principal); J45.901 Unspecified asthma with (acute) exacerbation; J96.01 Acute respiratory failure with hypoxia; F41.9 Anxiety disorder, unspecified; F32.9 Major depressive disorder, single episode, unspecified; Z87.891 Personal history of nicotine dependence; Z79.899 Other long term (current) drug therapy
CPT/HCPCS: 36415; 71045; 80048; 80053; 84484; 85025; 93005; 94640; 96372; 96374; 96376; 99285; A9270; G0378; J1650; J2930; J7620-GY

== ENCOUNTER 2019-08-11 13:50 | Observation (INO) | payer BC ==
[2019-08-11] MEDS ORDERED: Azithromycin 250 MG Tab PO STA (14:11)
[2019-08-11] MEDS ORDERED: Albuterol/Ipratropium 3.0-0.5 MG/3 ML Neb Soln NEB ONE ×3 (14:11→14:13)
[2019-08-11] MEDS ORDERED: Dexamethasone 4 MG Tab PO ONE (14:11)
--- NOTE | 2019-08-11 14:49 | CR ---
Chest: 2 views of the chest are obtained. Comparison: Prior chest x-ray of 07/07/19. Stable nodules are noted within both lung bases which are compatible with stable granulomas. Lungs show no acute parenchymal change. Lungs are hyperinflated compatible with emphysematous change. Heart size and mediastinum are within normal limits. Bony structures are within normal limits for the patient's age. Impression: 1. Stable calcified granulomas within each lung base. 2. Emphysematous change. 3. Nothing acute is otherwise seen on 2 view chest x-ray. Diagnostic code #2 Study was dictated in [place] Standard Time
[2019-08-11 15:14] LABS: BLOOD UREA NITROGEN,BUN 11 mg/dL (7.0-18.0); CARBON DIOXIDE,CO2 28.8 mmol/L (21.0-32.0); CHLORIDE,CL 109 mmol/L (98-107); GLUCOSE RANDOM 85 mg/dL (74-106); SODIUM,NA 145 mmol/L (136-145)
--- NOTE | 2019-08-11 15:31 | EDM.PDOC ---
ED HPI GENERAL MEDICAL PROBLEM - General Chief Complaint: Respiratory Problem Stated Complaint: SHORTNESS OF BREATH Time Seen by Provider: 08/11/19 14:01 - History of Present Illness INITIAL COMMENTS - FREE TEXT/NARRATIVE: HPI 54-year-old female former smoker with COPD presents for evaluation of increased shortness of breath and BRAY in the setting of several days of nonproductive cough and URI type symptoms. * PE risk factors: denies history of DVT or PE, recent immobilization, leg trauma, estrogen use, surgery in the last four weeks, hemoptysis, or malignancy in the last 6 months. * Inhaler(s): albuterol, no spacer. * CHF: denies weight gain, orthopnea, or diuretic use. M/S/F/SocHx notable for: please see HPI; remainder reviewed with patient and in chart. ROS: Negative constitutional, eye, cardiovascular, pulmonary, GI, , MSK, skin , neurologic, psychiatric, endocrine unless noted in the HPI. Exam HR 87, RR 20, BP 116/74, T 36.3C, SaO2 86% on room air. Gen: Pleasant, non-toxic appearing, not in extremis. HEENT: NC, AT, PEERL, EOMI, trachea midline. Resp: Diffuse expiratory wheezing throughout all lung izagu[place]re, increased work of breathing. Card: RRR with no M/R/G, no crackles in lung bases, no pedal edema, no JVD appreciated. GI: Non-tender to palpation throughout all quadrants, no rebound or guarding. MSK: No chest wall TTP. No visible deformities, strength and tone WNL. Skin: Normal color with no visible lesions. Neuro: alert and oriented 3, no facial asymmetry, vision and hearing WNL. Psych: Mood and affect appropriate. Labs / Imaging (pertinent): WBC 7.30, HB 13.9, sodium 145, potassium 4.0, troponin <0.050 EKG: SR at 70 bpm, no KS segment depressions, no new ST segment changes, new LBBB, or T-wave changes that would suggest acute ischemia. EKG compaired with prior dated CXR: 1. Stable calcified granulomatous within each lung base. 2. Emphysematous change. 3. Nothing acute is otherwise seen on 2 view chest x-ray. MDM Previous chart, nursing note, and vitals reviewed. A: 54-year-old female former smoker with COPD presents for evaluation of increased shortness of breath and BRAY in the setting of several days of nonproductive cough and URI type symptoms. DDx: COPD exacerbation, pneumonia, bronchitis, pneumothorax, anxiety, PE, CHF exacerbation, pleural effusion, pericardial effusion, ACS. Evaluation: * COPD exacerbation - known history along with today's presentation (increased WOB with wheezing throughout all lung izaguirre) most consistent with COPD exacerbation. * Pneumonia - as the CXR is without focal infiltrate and the patient is afebrile and without significant sputum production, doubt pneumonia. * Bronchitis - doubt given the lack of productive cough or systemic symptoms. * Pneumothorax - no evidence by CXR. * Anxiety - patient clinically without evidence of appreciable anxiety on exam. * PE - low clinical suspicion given history and alternate diagnosis, further risk stratification (e.g.) Well's not indicated. Further evaluation deferred to the hospitalist as appropriate. * CHF - no evidence by CXR, auscultation, or physical exam. * Pleural effusion - CXR without evidence of effusions. * Pericardial effusion - doubt pericardial effusion given an alternate diagnosis , the lack of cardiomegaly on CXR and normal heart sounds. * ACS - doubt ACS given a non-ischemic EKG and a negative troponin greater than six hours from maximal symptom onset. ED Course: Given 3 duonebs, 16 mg dexamethasone, and 500 mg Azithromycin. Patient with ongoing oxygen requirement, 3 L per minute by nasal cannula. Disposition: admitted for further care. Impression: COPD exacerbation. (please reference below for remainder of encounter information) Critical Care Time Organ system(s): Cardiopulmonary Intervention: Assessment of the patient, interpretation of studies, communication related to patient care. Time: 30 minutes were spent directly related to patient care exclusive of separately billed procedures. - Related Data Allergies Allergy/AdvReac Type Severity Reaction Status Date / Time No Known Allergies Allergy Verified 08/11/19 13:55 Home Meds: Home Meds Escitalopram Oxalate 15 mg PO DAILY 03/13/19 [History] busPIRone [Buspar] 10 mg PO BID PRN 03/13/19 [History] Albuterol Sulfate [Albuterol Sulfate Hfa] 2 puff INH Q4H PRN 30 Days #1 hfa.aer.ad 07/08/19 [Rx] Albuterol [Proventil Neb Soln] 0.63 mg NEB Q4HRRT PRN 30 Days #30 neb 07/08/19 [ Rx] Past Medical History HEENT History: Reports: None Cardiovascular History: Reports: None Respiratory History: Reports: Asthma, COPD Gastrointestinal History: Reports: Other (See Below) Other Gastrointestinal History: dysphagia Genitourinary History: Reports: None Musculoskeletal History: Reports: None Neurological History: Reports: None Psychiatric History: Reports: Anxiety, Depression Endocrine/Metabolic History: Reports: None Hematologic History: Reports: None Immunologic History: Reports: None Oncologic (Cancer) History: Reports: None Dermatologic History: Reports: None - Infectious Disease History Infectious Disease History: Reports: Chicken Pox, Shingles - Past Surgical History Head Surgeries/Procedures: Reports: None HEENT Surgical History: Reports: None Cardiovascular Surgical History: Reports: None Respiratory Surgical History: Reports: None GI Surgical History: Reports: None Female Surgical History: Reports: None Neurological Surgical History: Reports: None Musculoskeletal Surgical History: Reports: Carpal Tunnel, Other (See Below) Other Musculoskeletal Surgeries/Procedures:: ham bunionectomy, hx left knee surgery Oncologic Surgical History: Reports: None Dermatological Surgical History: Reports: None Social & Family History - Family History Family Medical History: Noncontributory - Tobacco Use Smoking Status *Q: Current Status Unknown - Caffeine Use Caffeine Use: Reports: Coffee, Tea ED ROS GENERAL - Review of Systems Review Of Systems: See Below ED EXAM, GENERAL - Physical Exam Exam: See Below Course - Vital Signs Last Recorded V/S: Last Vital Signs Temp 36.3 C 08/11/19 13:58 Pulse 80 08/11/19 15:20 Resp 28 H 08/11/19 15:20 BP 109/64 08/11/19 15:20 Pulse Ox 94 L 08/11/19 15:20 - Orders/Labs/Meds Orders: Active Orders 24 hr Category Date Time Status EKG 12 Lead [EKG Documentation Completion] [RC] STAT Care 08/11/19 14:11 Active RT Aerosol Therapy [RC] ASDIRECTED Care 08/11/19 14:12 Active RT Aerosol Therapy [RC] ASDIRECTED Care 08/11/19 14:13 Active RT Aerosol Therapy [RC] ASDIRECTED Care 08/11/19 14:13 Active Labs: Laboratory Tests 08/11/19 08/11/19 Range/Units 14:36 14:36 WBC 7.30 (4.0-11.0) K/uL RBC 4.50 (4.30-5.90) M/uL Hgb 13.9 (12.0-16.0) g/dL Hct 43.4 (36.0-46.0) % MCV 96.4 (80.0-98.0) fL MCH 30.9 (27.0-32.0) pg MCHC 32.0 (31.0-37.0) g/dL RDW Std Deviation 49.9 (28.0-62.0) fl RDW Coeff of Rudy 14 (11.0-15.0) % Plt Count 261 (150-400) K/uL MPV 9.80 (7.40-12.00) fL Neut % (Auto) 52.1 (48.0-80.0) % Lymph % (Auto) 29.9 (16.0-40.0) % [place] % (Auto) 6.8 (0.0-15.0) % Eos % (Auto) 10.8 H (0.0-7.0) % Baso % (Auto) 0.4 (0.0-1.5) % Neut # (Auto) 3.8 (1.4-5.7) K/uL Lymph # (Auto) 2.2 (0.6-2.4) K/uL [place] # (Auto) 0.5 (0.0-0.8) K/uL Eos # (Auto) 0.8 H (0.0-0.7) K/uL Baso # (Auto) 0.0 (0.0-0.1) K/uL Nucleated RBC % 0.0 /100WBC Nucleated RBCs # 0 K/uL Sodium 145 (136-145) mmol/L Potassium 4.0 (3.5-5.1) mmol/L Chloride 109 H (98-107) mmol/L Carbon Dioxide 28.8 (21.0-32.0) mmol/L BUN 11 (7.0-18.0) mg/dL Creatinine 0.9 (0.6-1.0) mg/dL Est Cr Clr Drug Dosing 63.55 mL/min Estimated GFR (MDRD) > 60.0 ml/min Glucose 85 (74-106) mg/dL Calcium 9.5 (8.5-10.1) mg/dL Troponin I < 0.050 (0.000-0.056) ng/mL Meds: Medications Discontinued Medications Generic Name Dose Route Start Last Admin Trade Name Alfonsoq PRN Reason Stop Dose Admin Albuterol/Ipratropium 3 ml 08/11/19 14:11 08/11/19 14:34 Duoneb 3.0-0.5 Mg/3 Ml NEB 08/11/19 14:12 3 ml ONETIME ONE Administration Albuterol/Ipratropium 3 ml 08/11/19 14:13 08/11/19 14:35 Duoneb 3.0-0.5 Mg/3 Ml NEB 08/11/19 14:14 3 ml ONETIME ONE Administration Albuterol/Ipratropium 3 ml 08/11/19 14:13 08/11/19 14:43 Duoneb 3.0-0.5 Mg/3 Ml NEB 08/11/19 14:14 3 ml ONETIME ONE Administration Azithromycin 500 mg 08/11/19 14:11 08/11/19 14:32 Zithromax PO 08/11/19 14:12 500 mg NOW STA Administration Dexamethasone 16 mg 08/11/19 14:11 08/11/19 14:31 Dexamethasone PO 08/11/19 14:12 16 mg ONETIME ONE Administration Departure - Departure Time of Disposition: 15:31 Disposition: Admitted As Inpatient 65 Clinical Impression: COPD exacerbation - Discharge Information Referrals: PCP,None [Primary Care Provider] - Sepsis Event Note - Evaluation Sepsis Screening Result: No Definite Risk - Focused Exam Vital Signs: Vital Signs Temp Pulse Resp BP Pulse Ox 08/11/19 15:20 80 28 H 109/64 94 L 08/11/19 14:40 78 26 H 106/61 95 08/11/19 13:58 36.3 C 87 20 116/74 86 L Date Exam was Performed: 08/11/19 Time Exam was Performed: 15:31 - My Orders Last 24 Hours: My Active Orders 08/11/19 14:11 EKG 12 Lead [EKG Documentation Completion] [RC] STAT 08/11/19 14:12 RT Aerosol Therapy [RC] ASDIRECTED 08/11/19 14:13 RT Aerosol Therapy [RC] ASDIRECTED RT Aerosol Therapy [RC] ASDIRECTED - Assessment/Plan Last 24 Hours: My Active Orders 08/11/19 14:11 EKG 12 Lead [EKG Documentation Completion] [RC] STAT 08/11/19 14:12 RT Aerosol Therapy [RC] ASDIRECTED 08/11/19 14:13 RT Aerosol Therapy [RC] ASDIRECTED RT Aerosol Therapy [RC] ASDIRECTED
[2019-08-11] MEDS ORDERED: Acetaminophen 325 MG Tab PO PRN (16:01)
[2019-08-11] MEDS ORDERED: Morphine 10 MG/ML Syringe IVPUSH PRN (16:01)
[2019-08-11] MEDS ORDERED: BUSPIRONE 10 MG PO PRN (16:10)
[2019-08-11] MEDS: Heparin Sodium 5,000 Units/ML Vial SUBCUT SCH ×2 (17:37→23:48)
[2019-08-11] MEDS: Lactated Ringers 1,000 ML IV SCH (17:38)
[2019-08-11] MEDS ORDERED: Melatonin 3 MG Tab PO PRN (19:37)
[2019-08-11] MEDS ORDERED: LORazepam 2 MG/ML SDV IVPUSH ONE (19:37)
--- NOTE | 2019-08-11 19:56 | PCM.HP.2 ---
H&P History of Present Illness - General Date of Service: 08/11/19 Admit Problem/Dx: Admission Diagnosis/Problem Admission Diagnosis/Problem COPD, Severe chronic obstructive pulmonary disease - History of Present Illness Initial Comments - Free Text/Narative: Patient is a 54-year-old female former smoker with PMH of Asthma/COPD, anxiety presents to ER for evaluation of increased shortness of breath and BRAY on going for last several days along with of nonproductive cough and URI type symptoms. Patient denies history of DVT or PE, recent immobilization, leg trauma, estrogen use, surgery in the last four weeks, hemoptysis, or malignancy in the last 6 months. Patient uses her Anoro (changed from Symbicort by her dietitian teaching few weeks back) and albuterol inhaler. Patient denies weight gain , orthopnea, or diuretic use. Patient states this is her 3rd COPD exacerbation in past 4 months, doesn't use oxygen at home. States her work has been very stressful and may be contributing to her symptoms. In the ER patient was found to be hypoxic in mid 80s, CXR was clear, EKG unremarkable, started on NC, oxygenation improved, received DuoNebs and PO steroids with minimal improvement. Patient is being admitted for further management. Onset of Symptoms: Reports: Gradual Duration of Symptoms: Reports: Day(s): Improves with: Reports: None - Related Data Allergies/Adverse Reactions: Allergies Allergy/AdvReac Type Severity Reaction Status Date / Time No Known Allergies Allergy Verified 08/11/19 17:10 Home Medications: Home Meds Escitalopram Oxalate 15 mg PO DAILY 03/13/19 [History] busPIRone [Buspar] 10 mg PO BID PRN 03/13/19 [History] Albuterol Sulfate [Albuterol Sulfate Hfa] 2 puff INH Q4H PRN 30 Days #1 hfa.aer.[email or web address] 07/08/19 [Rx] Albuterol [Proventil Neb Soln] 0.63 mg NEB Q4HRRT PRN 30 Days #30 neb 07/08/19 [ Rx] Melatonin/Pyridoxine HCl (B6) [Melatonin 5 mg Tablet] 10 mg PO BEDTIME PRN 08/10 [History] Past Medical History HEENT History: Reports: Impaired Vision Other HEENT History: wears glasses Cardiovascular History: Reports: None Respiratory History: Reports: Asthma, COPD Gastrointestinal History: Reports: Other (See Below) Other Gastrointestinal History: dysphagia Genitourinary History: Reports: None Musculoskeletal History: Reports: None Neurological History: Reports: None Psychiatric History: Reports: Anxiety, Depression Endocrine/Metabolic History: Reports: None Hematologic History: Reports: None Immunologic History: Reports: None Oncologic (Cancer) History: Reports: None Dermatologic History: Reports: None - Infectious Disease History Infectious Disease History: Reports: Chicken Pox, Shingles - Past Surgical History Head Surgeries/Procedures: Reports: None HEENT Surgical History: Reports: None Cardiovascular Surgical History: Reports: None Respiratory Surgical History: Reports: None GI Surgical History: Reports: None Female Surgical History: Reports: None Neurological Surgical History: Reports: None Musculoskeletal Surgical History: Reports: Carpal Tunnel, Other (See Below) Other Musculoskeletal Surgeries/Procedures:: ham bunionectomy, hx left knee surgery Oncologic Surgical History: Reports: None Dermatological Surgical History: Reports: None Social & Family History - Family History Family Medical History: Noncontributory - Tobacco Use Smoking Status *Q: Former Smoker Used Tobacco, but Quit: Yes Month/Year Tobacco Last Used: 1994 Tobacco Use Comment: Pt quit smoking 25years ago Second Hand Smoke Exposure: No - Caffeine Use Caffeine Use: Reports: Coffee, Tea - Recreational Drug Use Recreational Drug Use: No H&P Review of Systems - Review of Systems: Review Of Systems: Comprehensive ROS is negative, except as noted in HPI. Exam - Exam Exam: See Below - Vital Signs Vital Signs: Last Vital Signs Temp 36.9 C 08/11/19 16:12 Pulse 83 08/11/19 16:12 Resp 18 08/11/19 16:12 BP 96/63 08/11/19 16:12 Pulse Ox 94 L 08/11/19 18:30 Weight: 64.274 kg - Exam Quality Assessment: Supplemental Oxygen General: Alert, Oriented, Cooperative, Mild Distress HEENT: Conjunctiva Clear, Other (herpes simplex lesions) Neck: Supple, Trachea Midline Lungs: Decreased Breath Sounds Cardiovascular: Regular Rate, Regular Rhythm GI/Abdominal Exam: Normal Bowel Sounds, Soft, Non-Tender - Patient Data Lab Results Last 24 hrs: Laboratory Results - last 24 hr 08/11/19 08/11/19 Range/Units 14:36 14:36 WBC 7.30 (4.0-11.0) K/uL RBC 4.50 (4.30-5.90) M/uL Hgb 13.9 (12.0-16.0) g/dL Hct 43.4 (36.0-46.0) % MCV 96.4 (80.0-98.0) fL MCH 30.9 (27.0-32.0) pg MCHC 32.0 (31.0-37.0) g/dL RDW Std Deviation 49.9 (28.0-62.0) fl RDW Coeff of Rudy 14 (11.0-15.0) % Plt Count 261 (150-400) K/uL MPV 9.80 (7.40-12.00) fL Neut % (Auto) 52.1 (48.0-80.0) % Lymph % (Auto) 29.9 (16.0-40.0) % [place] % (Auto) 6.8 (0.0-15.0) % Eos % (Auto) 10.8 H (0.0-7.0) % Baso % (Auto) 0.4 (0.0-1.5) % Neut # (Auto) 3.8 (1.4-5.7) K/uL Lymph # (Auto) 2.2 (0.6-2.4) K/uL [place] # (Auto) 0.5 (0.0-0.8) K/uL Eos # (Auto) 0.8 H (0.0-0.7) K/uL Baso # (Auto) 0.0 (0.0-0.1) K/uL Nucleated RBC % 0.0 /100WBC Nucleated RBCs # 0 K/uL Sodium 145 (136-145) mmol/L Potassium 4.0 (3.5-5.1) mmol/L Chloride 109 H (98-107) mmol/L Carbon Dioxide 28.8 (21.0-32.0) mmol/L BUN 11 (7.0-18.0) mg/dL Creatinine 0.9 (0.6-1.0) mg/dL Est Cr Clr Drug Dosing 63.55 mL/min Estimated GFR (MDRD) > 60.0 ml/min Glucose 85 (74-106) mg/dL Calcium 9.5 (8.5-10.1) mg/dL Troponin I < 0.050 (0.000-0.056) ng/mL Result Diagrams: 08/11/19 14:36 08/11/19 14:36 Sepsis Event Note - Evaluation Sepsis Screening Result: No Definite Risk - Focused Exam Vital Signs: Vital Signs Temp Pulse Resp BP Pulse Ox Pulse Ox 08/11/19 18:30 94 L 08/11/19 17:48 92 L 92 L 08/11/19 17:05 92 L 08/11/19 16:12 36.9 C 83 18 96/63 95 08/11/19 15:36 36.0 C L 84 18 101/52 L 93 L 08/11/19 15:20 80 28 H 109/64 94 L 08/11/19 14:40 78 26 H 106/61 95 08/11/19 13:58 36.3 C 87 20 116/74 86 L Date Exam was Performed: 08/11/19 Time Exam was Performed: 20:03 *Q Meaningful Use (ADM) - VTE Risk Assess *Q Each Risk Factor Represents 1 Point: Age 41 - 59 years, Abnormal Pulmonary Function (COPD) Total Score 1 Point Risk Factors: 2 - Problem List (1) COPD exacerbation SNOMED Code(s): 436186665 ICD Code: J44.1 - CHRONIC OBSTRUCTIVE PULMONARY DISEASE W (ACUTE) EXACERBATION Status: Acute Current Visit: Yes (2) Acute respiratory failure with hypoxia SNOMED Code(s): 29757699, 155284674 ICD Code: J96.01 - ACUTE RESPIRATORY FAILURE WITH HYPOXIA Status: Acute Current Visit: Yes Problem List Initiated/Reviewed/Updated: Yes Orders Last 24hrs: Active Orders 24 hr Category Date Time Status Patient Status [ADT] Stat ADT 08/11/19 15:31 Active Ambulate [RC] ASDIRECTED Care 08/11/19 16:01 Active Antiembolic Devices [RC] PER UNIT ROUTINE Care 08/11/19 16:04 Active EKG 12 Lead [EKG Documentation Completion] [RC] STAT Care 08/11/19 14:11 Active Oxygen Therapy [RC] PRN Care 08/11/19 16:01 Active Pulse Oximetry [RC] PRN Care 08/11/19 16:02 Active RT Aerosol Therapy [RC] ASDIRECTED Care 08/11/19 14:12 Active RT Aerosol Therapy [RC] ASDIRECTED Care 08/11/19 14:13 Active RT Aerosol Therapy [RC] ASDIRECTED Care 08/11/19 14:13 Active RT Aerosol Therapy [RC] ASDIRECTED Care 08/11/19 16:05 Active Telemetry Monitoring [Cardiac Monitoring] [RC] . Care 08/11/19 15:31 Active DIRECTED VTE/DVT Education [RC] PER UNIT ROUTINE Care 08/11/19 16:01 Active Vital Signs [RC] Q4H Care 08/11/19 16:01 Active Regular Diet [DIET] Diet 08/12/19 Breakfast Active Acetaminophen [Tylenol] Med 08/11/19 16:01 Active 650 mg PO Q4H PRN Albuterol/Ipratropium [DuoNeb 3.0-0.5 MG/3 ML] Med 08/11/19 16:01 Active 3 ml NEB Q4HRRT PRN Azithromycin [Zithromax] Med 08/12/19 09:00 Active 250 mg PO Q24H Escitalopram [Lexapro] Med 08/12/19 09:00 Active 15 mg PO DAILY Heparin Sodium Med 08/11/19 16:15 Active 5,000 units SUBCUT Q8H Lactated Ringers [Ringers, Lactated] 1,000 ml Med 08/11/19 16:15 Active IV ASDIRECTED Melatonin Med 08/11/19 19:37 Active 9 mg PO BEDTIME PRN Morphine Med 08/11/19 16:01 Active 1 mg IVPUSH Q3H PRN Pantoprazole [ProTONIX IV] Med 08/11/19 21:00 Active 40 mg IV Q12HR busPIRone Med 08/11/19 16:10 Active 10 mg PO BID PRN methylPREDNISolone Sod Succ [Solu-MEDROL] Med 08/11/19 21:00 Active 40 mg IVPUSH Q8H Sequential Compression Device [OM.PC] Per Unit Routine Oth 08/11/19 16:03 Ordered Resuscitation Status Routine Resus Stat 08/11/19 16:01 Ordered Medication Orders Acetaminophen (Tylenol) 650 mg PO Q4H PRN PRN Reason: Pain (Mild 1-3)/fever Albuterol/Ipratropium (Duoneb 3.0-0.5 Mg/3 Ml) 3 ml NEB Q4HRRT PRN PRN Reason: Shortness Of Breath/wheezing Azithromycin (Zithromax) 250 mg PO Q24H [facility] Escitalopram Oxalate (Lexapro) 15 mg PO DAILY [facility] Heparin Sodium (Porcine) (Heparin Sodium) 5,000 units SUBCUT Q8H [facility] Last Admin: 08/11/19 17:37 Dose: 5,000 units Lactated Ringer's (Ringers, Lactated) 1,000 mls @ 125 mls/hr IV ASDIRECTED [facility] Last Admin: 08/11/19 17:38 Dose: 125 mls/hr Melatonin (Melatonin) 9 mg PO BEDTIME PRN PRN Reason: Insomnia Methylprednisolone Sodium Succinate (Solu-Medrol) 40 mg IVPUSH Q8H [facility] Morphine Sulfate (Morphine) 1 mg IVPUSH Q3H PRN PRN Reason: Pain (severe 7-10) Stop: 08/12/19 16:03 Non-Formulary Medication (Buspirone) 10 mg PO BID PRN PRN Reason: Anxiety Pantoprazole Sodium (Protonix Iv) 40 mg IV Q12HR [facility] Assessment/Plan Comment:: 54 y/o F admitted for management of COPD exacerbation Will start on IV steroids cont oxygenation on NC, goal >88% start DuoNebs Q4 PRN SOB Will start azithromycin for possible URI monitor and replete electrolytes resume home meds for anxiety Heparin for DVT ppx
[2019-08-11] MEDS: methylPREDNISolone Sodium Succinate 40 MG/1 ML SDV IVPUSH SCH (20:59)
[2019-08-11] MEDS ORDERED: Pantoprazole 40 MG Vial IV SCH (21:00)
[2019-08-12] MEDS: Lactated Ringers 1,000 ML IV SCH ×3 (03:32→23:21)
[2019-08-12] MEDS: methylPREDNISolone Sodium Succinate 40 MG/1 ML SDV IVPUSH SCH ×3 (05:03→20:33)
[2019-08-12 06:33] LABS: BLOOD UREA NITROGEN,BUN 21 mg/dL (7.0-18.0); CARBON DIOXIDE,CO2 26.5 mmol/L (21.0-32.0); CHLORIDE,CL 106 mmol/L (98-107); GLUCOSE RANDOM 141 mg/dL (74-106); POTASSIUM,K 4.2 mmol/L (3.5-5.1); SODIUM,NA 141 mmol/L (136-145)
[2019-08-12] MEDS: Pantoprazole 40 MG in Sodium Chloride 0.9% 10 ML IV SCH ×2 (08:55→20:36)
[2019-08-12] MEDS: Azithromycin 250 MG Tab PO SCH (08:55)
[2019-08-12] MEDS: Heparin Sodium 5,000 Units/ML Vial SUBCUT SCH ×3 (08:55→23:19)
[2019-08-12] MEDS ORDERED: Escitalopram 10 MG Tab PO SCH (09:00)
[2019-08-12] MEDS ORDERED: Lactated Ringers 500 ML IV ONE (09:34)
[2019-08-12] MEDS: Albuterol/Ipratropium 3.0-0.5 MG/3 ML Neb Soln NEB PRN ×3 (09:49→20:07)
--- NOTE | 2019-08-12 11:47 | PCM.PN ---
- General Info Date of Service: 08/12/19 Admission Dx/Problem (Free Text): Admission Diagnosis/Problem Admission Diagnosis/Problem COPD, Severe chronic obstructive pulmonary disease Subjective Update: seen and examined at bedside, resting comfortably, on 1.5 Lts, still feels BRAY when she goes to bathroom. cough and sputum production has resolved. slept well. Functional Status: Reports: Pain Controlled, Tolerating Diet, Ambulating, Urinating, Incentive Spirometry - Review of Systems General: Denies: Fever, Weakness, Fatigue Pulmonary: Reports: Shortness of Breath. Denies: Pleuritic Chest Pain, Cough, Sputum Gastrointestinal: Denies: Abdominal Pain, Constipation, Decreased Appetite Genitourinary: Denies: Dysuria, Frequency Musculoskeletal: Denies: Neck Pain, Shoulder Pain, Arm Pain Neurological: Denies: Confusion, Dizziness, Headache, Numbness - Patient Data Vitals - Most Recent: Last Vital Signs Temp 36.6 C 08/12/19 07:40 Pulse 82 08/12/19 07:40 Resp 20 08/12/19 07:40 BP 109/66 08/12/19 07:40 Pulse Ox 92 L 08/12/19 10:19 Weight - Most Recent: 64.274 kg I&O - Last 24 Hours: Intake & Output 08/11/19 08/12/19 08/12/19 21:59 06:59 14:59 Intake Total Output Total Balance Lab Results Last 24 Hours: Laboratory Results - last 24 hr 08/11/19 08/11/19 08/12/19 Range/Units 14:36 14:36 06:00 WBC 7.30 8.33 (4.0-11.0) K/uL RBC 4.50 4.26 L (4.30-5.90) M/uL Hgb 13.9 12.9 (12.0-16.0) g/dL Hct 43.4 40.5 (36.0-46.0) % MCV 96.4 95.1 (80.0-98.0) fL MCH 30.9 30.3 (27.0-32.0) pg MCHC 32.0 31.9 (31.0-37.0) g/dL RDW Std Deviation 49.9 47.3 (28.0-62.0) fl RDW Coeff of Rudy 14 14 (11.0-15.0) % Plt Count 261 280 (150-400) K/uL MPV 9.80 9.90 (7.40-12.00) fL Neut % (Auto) 52.1 88.4 H (48.0-80.0) % Lymph % (Auto) 29.9 11.0 L (16.0-40.0) % [place] % (Auto) 6.8 0.6 (0.0-15.0) % Eos % (Auto) 10.8 H 0.0 (0.0-7.0) % Baso % (Auto) 0.4 0.0 (0.0-1.5) % Neut # (Auto) 3.8 7.4 H (1.4-5.7) K/uL Lymph # (Auto) 2.2 0.9 (0.6-2.4) K/uL [place] # (Auto) 0.5 0.1 (0.0-0.8) K/uL Eos # (Auto) 0.8 H 0.0 (0.0-0.7) K/uL Baso # (Auto) 0.0 0.0 (0.0-0.1) K/uL Nucleated RBC % 0.0 0.0 /100WBC Nucleated RBCs # 0 0 K/uL Sodium 145 (136-145) mmol/L Potassium 4.0 (3.5-5.1) mmol/L Chloride 109 H (98-107) mmol/L Carbon Dioxide 28.8 (21.0-32.0) mmol/L BUN 11 (7.0-18.0) mg/dL Creatinine 0.9 (0.6-1.0) mg/dL Est Cr Clr Drug Dosing 63.55 mL/min Estimated GFR (MDRD) > 60.0 ml/min Glucose 85 (74-106) mg/dL Calcium 9.5 (8.5-10.1) mg/dL Phosphorus (2.6-4.7) mg/dL Magnesium (1.8-2.4) mg/dL Troponin I < 0.050 (0.000-0.056) ng/mL 08/12/19 Range/Units 06:00 WBC (4.0-11.0) K/uL RBC (4.30-5.90) M/uL Hgb (12.0-16.0) g/dL Hct (36.0-46.0) % MCV (80.0-98.0) fL MCH (27.0-32.0) pg MCHC (31.0-37.0) g/dL RDW Std Deviation (28.0-62.0) fl RDW Coeff of Rudy (11.0-15.0) % Plt Count (150-400) K/uL MPV (7.40-12.00) fL Neut % (Auto) (48.0-80.0) % Lymph % (Auto) (16.0-40.0) % [place] % (Auto) (0.0-15.0) % Eos % (Auto) (0.0-7.0) % Baso % (Auto) (0.0-1.5) % Neut # (Auto) (1.4-5.7) K/uL Lymph # (Auto) (0.6-2.4) K/uL [place] # (Auto) (0.0-0.8) K/uL Eos # (Auto) (0.0-0.7) K/uL Baso # (Auto) (0.0-0.1) K/uL Nucleated RBC % /100WBC Nucleated RBCs # K/uL Sodium 141 (136-145) mmol/L Potassium 4.2 (3.5-5.1) mmol/L Chloride 106 (98-107) mmol/L Carbon Dioxide 26.5 (21.0-32.0) mmol/L BUN 21 H (7.0-18.0) mg/dL Creatinine 0.8 (0.6-1.0) mg/dL Est Cr Clr Drug Dosing 71.50 mL/min Estimated GFR (MDRD) > 60.0 ml/min Glucose 141 H (74-106) mg/dL Calcium 9.4 (8.5-10.1) mg/dL Phosphorus 3.1 (2.6-4.7) mg/dL Magnesium 2.0 (1.8-2.4) mg/dL Troponin I (0.000-0.056) ng/mL Med Orders - Current: Current Medications Acetaminophen (Tylenol) 650 mg PO Q4H PRN PRN Reason: Pain (Mild 1-3)/fever Albuterol/Ipratropium (Duoneb 3.0-0.5 Mg/3 Ml) 3 ml NEB Q4HRRT PRN PRN Reason: Shortness Of Breath/wheezing Last Admin: 08/12/19 09:49 Dose: 3 ml Azithromycin (Zithromax) 250 mg PO Q24H [facility] Last Admin: 08/12/19 08:55 Dose: 250 mg Escitalopram Oxalate (Lexapro) 15 mg PO DAILY [facility] Heparin Sodium (Porcine) (Heparin Sodium) 5,000 units SUBCUT Q8H [facility] Last Admin: 08/12/19 08:55 Dose: 5,000 units Lactated Ringer's (Ringers, Lactated) 1,000 mls @ 125 mls/hr IV ASDIRECTED [facility] Last Infusion: 08/12/19 11:16 Dose: 125 mls/hr Pantoprazole Sodium 40 mg/ (Sodium Chloride) 10 mls @ 300 mls/hr IV BID [facility] Last Admin: 08/12/19 08:55 Dose: 300 mls/hr Melatonin (Melatonin) 9 mg PO BEDTIME PRN PRN Reason: Insomnia Methylprednisolone Sodium Succinate (Solu-Medrol) 40 mg IVPUSH Q8H [facility] Last Admin: 08/12/19 05:03 Dose: 40 mg Morphine Sulfate (Morphine) 1 mg IVPUSH Q3H PRN PRN Reason: Pain (severe 7-10) Stop: 08/12/19 16:03 Non-Formulary Medication (Buspirone) 10 mg PO BID PRN PRN Reason: Anxiety Discontinued Medications Albuterol/Ipratropium (Duoneb 3.0-0.5 Mg/3 Ml) 3 ml NEB ONETIME ONE Stop: 08/11/19 14:12 Last Admin: 08/11/19 14:34 Dose: 3 ml Albuterol/Ipratropium (Duoneb 3.0-0.5 Mg/3 Ml) 3 ml NEB ONETIME ONE Stop: 08/11/19 14:14 Last Admin: 08/11/19 14:35 Dose: 3 ml Albuterol/Ipratropium (Duoneb 3.0-0.5 Mg/3 Ml) 3 ml NEB ONETIME ONE Stop: 08/11/19 14:14 Last Admin: 08/11/19 14:43 Dose: 3 ml Azithromycin (Zithromax) 500 mg PO NOW STA Stop: 08/11/19 14:12 Last Admin: 08/11/19 14:32 Dose: 500 mg Dexamethasone (Dexamethasone) 16 mg PO ONETIME ONE Stop: 08/11/19 14:12 Last Admin: 08/11/19 14:31 Dose: 16 mg Escitalopram Oxalate (Lexapro) 15 mg PO DAILY [facility] Last Admin: 08/12/19 09:06 Dose: Not Given Lactated Ringer's (Ringers, Lactated) 500 mls @ 999.99 mls/hr IV .BOLUS ONE Stop: 08/12/19 10:03 Last Admin: 08/12/19 09:49 Dose: 999.99 mls/hr Lorazepam (Ativan) 0.5 mg IVPUSH ONETIME ONE Stop: 08/11/19 19:38 Last Admin: 08/11/19 20:26 Dose: 0.5 mg Pantoprazole Sodium (Protonix Iv) 40 mg IV Q12HR [facility] Last Admin: 08/11/19 21:01 Dose: 40 mg - Exam Quality Assessment: Supplemental Oxygen General: Alert, Oriented Neck: Supple Lungs: Normal Respiratory Effort, Wheezing Cardiovascular: Regular Rate, Regular Rhythm GI/Abdominal Exam: Normal Bowel Sounds, Soft, Non-Tender Sepsis Event Note - Evaluation Sepsis Screening Result: No Definite Risk - Focused Exam Vital Signs: Vital Signs Temp Pulse Resp BP Pulse Ox Pulse Ox 08/12/19 10:19 92 L 08/12/19 09:59 94 L 08/12/19 07:40 36.6 C 82 20 109/66 96 08/12/19 03:35 36.2 C 90 18 139/76 91 L 08/11/19 23:51 36.2 C 80 12 98/80 94 L Date Exam was Performed: 08/12/19 Time Exam was Performed: 11:44 - Problem List & Annotations (1) COPD exacerbation SNOMED Code(s): 168006106 Code(s): J44.1 - CHRONIC OBSTRUCTIVE PULMONARY DISEASE W (ACUTE) EXACERBATION Status: Acute Current Visit: Yes (2) Acute respiratory failure with hypoxia SNOMED Code(s): 22434225, 673689612 Code(s): J96.01 - ACUTE RESPIRATORY FAILURE WITH HYPOXIA Status: Acute Current Visit: Yes - Problem List Review Problem List Initiated/Reviewed/Updated: Yes - My Orders Last 24 Hours: My Active Orders 08/11/19 15:31 Telemetry Monitoring [Cardiac Monitoring] [RC] Q8H 08/11/19 16:01 Ambulate [RC] ASDIRECTED Oxygen Therapy [RC] PRN VTE/DVT Education [RC] PER UNIT ROUTINE Vital Signs [RC] Q4H Acetaminophen [Tylenol] 650 mg PO Q4H PRN Albuterol/Ipratropium [DuoNeb 3.0-0.5 MG/3 ML] 3 ml NEB Q4HRRT PRN Morphine 1 mg IVPUSH Q3H PRN Resuscitation Status Routine 08/11/19 16:02 Pulse Oximetry [RC] PRN 08/11/19 16:03 Sequential Compression Device [OM.PC] Per Unit Routine 08/11/19 16:04 Antiembolic Devices [RC] PER UNIT ROUTINE 08/11/19 16:05 RT Aerosol Therapy [RC] ASDIRECTED 08/11/19 16:10 busPIRone 10 mg PO BID PRN 08/11/19 16:15 Heparin Sodium 5,000 units SUBCUT Q8H Lactated Ringers [Ringers, Lactated] 1,000 ml IV ASDIRECTED 08/11/19 19:37 Melatonin 9 mg PO BEDTIME PRN 08/11/19 21:00 methylPREDNISolone Sod Succ [Solu-MEDROL] 40 mg IVPUSH Q8H 08/12/19 09:00 Azithromycin [Zithromax] 250 mg PO Q24H Pantoprazole [ProTONIX IV] 40 mg Sodium Chloride 0.9% [Normal Saline] 10 ml IV BID 08/12/19 11:44 Melatonin/Pyridoxine HCl (B6) [Melatonin 5 mg Tablet] 10 mg PO BEDTIME PRN 08/12/19 21:00 Escitalopram [Lexapro] 15 mg PO DAILY 08/12/19 Breakfast Regular Diet [DIET] - Plan Plan:: 54 y/o F admitted for management of COPD exacerbation cont IV steroids, cont oxygenation on NC, goal >88% cont DuoNebs Q4 PRN SOB cont azithromycin for possible URI monitor and replete electrolytes cont home meds for anxiety Heparin for DVT ppx Likely dc in AM
[2019-08-12] MEDS: Escitalopram 10 MG Tab PO SCH (20:32)
[2019-08-12] MEDS ORDERED: Melatonin/Pyridoxine Hcl (B6) [Melatonin 5 Mg Tablet] PO PRN (21:00)
[2019-08-13] MEDS: methylPREDNISolone Sodium Succinate 40 MG/1 ML SDV IVPUSH SCH ×2 (04:04→13:03)
[2019-08-13 06:30] LABS: BLOOD UREA NITROGEN,BUN 22 mg/dL (7.0-18.0); CARBON DIOXIDE,CO2 26.8 mmol/L (21.0-32.0); CHLORIDE,CL 109 mmol/L (98-107); GLUCOSE RANDOM 135 mg/dL (74-106); SODIUM,NA 145 mmol/L (136-145)
[2019-08-13] MEDS ORDERED: busPIRone 5 MG Tab PO PRN (07:45)
[2019-08-13] MEDS: Pantoprazole 40 MG in Sodium Chloride 0.9% 10 ML IV SCH (08:07)
[2019-08-13] MEDS: Lactated Ringers 1,000 ML IV SCH (08:07)
[2019-08-13] MEDS: Albuterol/Ipratropium 3.0-0.5 MG/3 ML Neb Soln NEB PRN (08:45)
[2019-08-13] MEDS: Heparin Sodium 5,000 Units/ML Vial SUBCUT SCH (08:47)
[2019-08-13] MEDS: Escitalopram 10 MG Tab PO SCH (08:49)
[2019-08-13] MEDS: Azithromycin 250 MG Tab PO SCH (08:49)
--- NOTE | 2019-08-13 09:45 | PCM.PN ---
- General Info Date of Service: 08/13/19 Subjective Update: Reports feeling comfortable at rest but still SOB when ambulating. Denies any fevers, chills, nausea or vomiting. - Patient Data Vitals - Most Recent: Last Vital Signs Temp 97.7 F 08/13/19 07:35 Pulse 79 08/13/19 07:35 Resp 20 08/13/19 07:35 BP 115/64 08/13/19 07:35 Pulse Ox 92 L 08/13/19 07:35 Weight - Most Recent: 141 lb 11.2 oz I&O - Last 24 Hours: Intake & Output 08/12/19 08/13/19 08/13/19 22:59 06:59 14:59 Intake Total 2985 1989 Output Total 2100 1500 Balance 885 489 Lab Results Last 24 Hours: Laboratory Results - last 24 hr 08/13/19 08/13/19 Range/Units 05:55 05:55 WBC 15.24 H (4.0-11.0) K/uL RBC 3.91 L (4.30-5.90) M/uL Hgb 12.2 (12.0-16.0) g/dL Hct 37.5 (36.0-46.0) % MCV 95.9 (80.0-98.0) fL MCH 31.2 (27.0-32.0) pg MCHC 32.5 (31.0-37.0) g/dL RDW Std Deviation 49.0 (28.0-62.0) fl RDW Coeff of Rduy 14 (11.0-15.0) % Plt Count 294 (150-400) K/uL MPV 10.00 (7.40-12.00) fL Neut % (Auto) 90.4 H (48.0-80.0) % Lymph % (Auto) 6.0 L (16.0-40.0) % [place] % (Auto) 3.5 (0.0-15.0) % Eos % (Auto) 0.0 (0.0-7.0) % Baso % (Auto) 0.1 (0.0-1.5) % Neut # (Auto) 13.8 H (1.4-5.7) K/uL Lymph # (Auto) 0.9 (0.6-2.4) K/uL [place] # (Auto) 0.5 (0.0-0.8) K/uL Eos # (Auto) 0.0 (0.0-0.7) K/uL Baso # (Auto) 0.0 (0.0-0.1) K/uL Nucleated RBC % 0.0 /100WBC Nucleated RBCs # 0 K/uL Sodium 145 (136-145) mmol/L Potassium 4.0 (3.5-5.1) mmol/L Chloride 109 H (98-107) mmol/L Carbon Dioxide 26.8 (21.0-32.0) mmol/L BUN 22 H (7.0-18.0) mg/dL Creatinine 0.9 (0.6-1.0) mg/dL Est Cr Clr Drug Dosing 63.55 mL/min Estimated GFR (MDRD) > 60.0 ml/min Glucose 135 H (74-106) mg/dL Calcium 9.1 (8.5-10.1) mg/dL Phosphorus 2.9 (2.6-4.7) mg/dL Magnesium 2.0 (1.8-2.4) mg/dL Med Orders - Current: Current Medications Acetaminophen (Tylenol) 650 mg PO Q4H PRN PRN Reason: Pain (Mild 1-3)/fever Albuterol/Ipratropium (Duoneb 3.0-0.5 Mg/3 Ml) 3 ml NEB Q4HRRT PRN PRN Reason: Shortness Of Breath/wheezing Last Admin: 08/13/19 08:45 Dose: 3 ml Azithromycin (Zithromax) 250 mg PO Q24H [facility] Last Admin: 08/13/19 08:49 Dose: 250 mg Buspirone HCl (Buspar) 10 mg PO BID PRN PRN Reason: Anxiety Escitalopram Oxalate (Lexapro) 15 mg PO DAILY [facility] Last Admin: 08/13/19 08:49 Dose: 15 mg Heparin Sodium (Porcine) (Heparin Sodium) 5,000 units SUBCUT Q8H [facility] Last Admin: 08/13/19 08:47 Dose: 5,000 units Lactated Ringer's (Ringers, Lactated) 1,000 mls @ 125 mls/hr IV ASDIRECTED [facility] Last Admin: 08/13/19 08:07 Dose: 125 mls/hr Pantoprazole Sodium 40 mg/ (Sodium Chloride) 10 mls @ 300 mls/hr IV BID [facility] Last Admin: 08/13/19 08:07 Dose: 300 mls/hr Melatonin (Melatonin) 9 mg PO BEDTIME PRN PRN Reason: Insomnia Methylprednisolone Sodium Succinate (Solu-Medrol) 40 mg IVPUSH Q8H [facility] Last Admin: 08/13/19 04:04 Dose: 40 mg Melatonin/Pyridoxine Hcl (B6) [Melatonin 5 Mg Tablet] 2 each PO BEDTIME PRN PRN Reason: Insomnia Discontinued Medications Albuterol/Ipratropium (Duoneb 3.0-0.5 Mg/3 Ml) 3 ml NEB ONETIME ONE Stop: 08/11/19 14:12 Last Admin: 08/11/19 14:34 Dose: 3 ml Albuterol/Ipratropium (Duoneb 3.0-0.5 Mg/3 Ml) 3 ml NEB ONETIME ONE Stop: 08/11/19 14:14 Last Admin: 08/11/19 14:35 Dose: 3 ml Albuterol/Ipratropium (Duoneb 3.0-0.5 Mg/3 Ml) 3 ml NEB ONETIME ONE Stop: 08/11/19 14:14 Last Admin: 08/11/19 14:43 Dose: 3 ml Azithromycin (Zithromax) 500 mg PO NOW STA Stop: 08/11/19 14:12 Last Admin: 08/11/19 14:32 Dose: 500 mg Dexamethasone (Dexamethasone) 16 mg PO ONETIME ONE Stop: 08/11/19 14:12 Last Admin: 08/11/19 14:31 Dose: 16 mg Escitalopram Oxalate (Lexapro) 15 mg PO DAILY [facility] Last Admin: 08/12/19 09:06 Dose: Not Given Lactated Ringer's (Ringers, Lactated) 500 mls @ 999.99 mls/hr IV .BOLUS ONE Stop: 08/12/19 10:03 Last Admin: 08/12/19 09:49 Dose: 999.99 mls/hr Lorazepam (Ativan) 0.5 mg IVPUSH ONETIME ONE Stop: 08/11/19 19:38 Last Admin: 08/11/19 20:26 Dose: 0.5 mg Morphine Sulfate (Morphine) 1 mg IVPUSH Q3H PRN PRN Reason: Pain (severe 7-10) Stop: 08/12/19 16:03 Non-Formulary Medication (Buspirone) 10 mg PO BID PRN PRN Reason: Anxiety Pantoprazole Sodium (Protonix Iv) 40 mg IV Q12HR [facility] Last Admin: 08/11/19 21:01 Dose: 40 mg - Exam General: Alert, Oriented, Cooperative, No Acute Distress Lungs: Other (quiet breath sounds bilaterally) Cardiovascular: Regular Rate, Regular Rhythm GI/Abdominal Exam: Normal Bowel Sounds, Soft, Non-Tender, No Distention Extremities: Normal Inspection, No Pedal Edema Sepsis Event Note - Evaluation Sepsis Screening Result: No Definite Risk - Focused Exam Vital Signs: Vital Signs Temp Pulse Resp BP Pulse Ox 08/13/19 07:35 97.7 F 79 20 115/64 92 L 08/13/19 03:39 97.8 F 60 15 103/57 L 91 L 08/12/19 23:17 98.1 F 60 14 98/55 L 92 L Date Exam was Performed: 08/13/19 Time Exam was Performed: 09:43 - Problem List Review Problem List Initiated/Reviewed/Updated: Yes - My Orders Last 24 Hours: My Active Orders 08/14/19 05:11 BASIC METABOLIC PANEL,BMP [CHEM] AM CBC WITH AUTO DIFF [HEME] AM - Plan Plan:: 54 y/o F admitted for management of COPD exacerbation Will start on IV steroids cont oxygenation on NC, goal >88% start DuoNebs Q4 PRN SOB Will start azithromycin for possible URI monitor and replete electrolytes resume home meds for anxiety Heparin for DVT ppx
--- NOTE | 2019-08-13 11:16 | PCM.DCSUM1 ---
Discharge Summary - Hospital Course Free Text/Narrative:: 54-year-old female admitted for acute hypoxic respiratory failure secondary to COPD exacerbation. She has a PMH of asthma, anxiety and history of tobacco abuse. Patient has been hospitalized three times for COPD exacerbations over the past 4 months. Patient does not use home oxygen at baseline. On admission, she required 3 L supplemental oxygen via [place]. She was treated with duonebs, IV solumderol and started on azithromycin. CXR showed emphysematous changes. On day of discharge, patient was saturating at 94% on room air while at rest. However, on ambulation, patient's oxygen saturation decreased to 80-83% and patient was short of breath. Patient discharged on home oxygen. Also provided script for prednisone taper, azithromycin and short-script for ativan for anxiety. 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 Advised patient to follow-up with her PCP and sales office administrator on discharge. - Discharge Data Discharge Date: 08/13/19 Discharge Disposition: Home, Self-Care 01 Condition: Stable - Referral to Home Health Primary Care Physician: PCP None - Patient Instructions Diet: Usual Diet as Tolerated Activity: As Tolerated Notify Provider of: Fever, Increased Pain, Swelling and Redness, Drainage, Nausea and/or Vomiting - Discharge Plan *PRESCRIPTION DRUG MONITORING PROGRAM REVIEWED*: Yes *COPY OF PRESCRIPTION DRUG MONITORING REPORT IN PATIENT FORREST: Not Applicable Prescriptions/Med Rec: Azithromycin [Zithromax] 250 mg PO Q24H 3 Days #3 tablet LORazepam [Ativan] 0.5 mg PO DAILY PRN 3 Days #3 tablet PRN Reason: Anxiety predniSONE [Prednisone] 20 mg PO DAILY 12 Days #24 tablet Home Medications: Home Meds Escitalopram Oxalate 15 mg PO DAILY 03/13/19 [History] busPIRone [Buspar] 10 mg PO BID PRN 03/13/19 [History] Albuterol Sulfate [Albuterol Sulfate Hfa] 2 puff INH Q4H PRN 30 Days #1 hfa.aer.ad 07/08/19 [Rx] Albuterol [Proventil Neb Soln] 0.63 mg NEB Q4HRRT PRN 30 Days #30 neb 07/08/19 [ Rx] Melatonin/Pyridoxine HCl (B6) [Melatonin 5 mg Tablet] 10 mg PO BEDTIME PRN 08/10 [History] Azithromycin [Zithromax] 250 mg PO Q24H 3 Days #3 tablet 08/13/19 [Rx] LORazepam [Ativan] 0.5 mg PO DAILY PRN 3 Days #3 tablet 08/13/19 [Rx] predniSONE [Prednisone] 20 mg PO DAILY 12 Days #24 tablet 08/13/19 [Rx] Oxygen Therapy Mode: Nasal Cannula Oxygen Flow Rate (L/min): 1 Maintain SpO2% greater than: 88 Forms: ED Department Discharge Referrals: PCP,None [Primary Care Provider] - - Discharge Summary/Plan Comment DC Time >30 min.: No - Patient Data Vitals - Most Recent: Last Vital Signs Temp 97.7 F 08/13/19 07:35 Pulse 79 08/13/19 07:35 Resp 20 08/13/19 07:35 BP 115/64 08/13/19 07:35 Pulse Ox 92 L 08/13/19 07:35 Weight - Most Recent: 141 lb 11.2 oz I&O - Last 24 hours: Intake & Output 08/12/19 08/13/19 08/13/19 22:59 06:59 14:59 Intake Total 2985 1989 Output Total 2100 1500 Balance 885 489 Lab Results - Last 24 hrs: Laboratory Results - last 24 hr 08/13/19 08/13/19 Range/Units 05:55 05:55 WBC 15.24 H (4.0-11.0) K/uL RBC 3.91 L (4.30-5.90) M/uL Hgb 12.2 (12.0-16.0) g/dL Hct 37.5 (36.0-46.0) % MCV 95.9 (80.0-98.0) fL MCH 31.2 (27.0-32.0) pg MCHC 32.5 (31.0-37.0) g/dL RDW Std Deviation 49.0 (28.0-62.0) fl RDW Coeff of Rudy 14 (11.0-15.0) % Plt Count 294 (150-400) K/uL MPV 10.00 (7.40-12.00) fL Neut % (Auto) 90.4 H (48.0-80.0) % Lymph % (Auto) 6.0 L (16.0-40.0) % [place] % (Auto) 3.5 (0.0-15.0) % Eos % (Auto) 0.0 (0.0-7.0) % Baso % (Auto) 0.1 (0.0-1.5) % Neut # (Auto) 13.8 H (1.4-5.7) K/uL Lymph # (Auto) 0.9 (0.6-2.4) K/uL [place] # (Auto) 0.5 (0.0-0.8) K/uL Eos # (Auto) 0.0 (0.0-0.7) K/uL Baso # (Auto) 0.0 (0.0-0.1) K/uL Nucleated RBC % 0.0 /100WBC Nucleated RBCs # 0 K/uL Sodium 145 (136-145) mmol/L Potassium 4.0 (3.5-5.1) mmol/L Chloride 109 H (98-107) mmol/L Carbon Dioxide 26.8 (21.0-32.0) mmol/L BUN 22 H (7.0-18.0) mg/dL Creatinine 0.9 (0.6-1.0) mg/dL Est Cr Clr Drug Dosing 63.55 mL/min Estimated GFR (MDRD) > 60.0 ml/min Glucose 135 H (74-106) mg/dL Calcium 9.1 (8.5-10.1) mg/dL Phosphorus 2.9 (2.6-4.7) mg/dL Magnesium 2.0 (1.8-2.4) mg/dL Med Orders - Current: Current Medications Acetaminophen (Tylenol) 650 mg PO Q4H PRN PRN Reason: Pain (Mild 1-3)/fever Albuterol/Ipratropium (Duoneb 3.0-0.5 Mg/3 Ml) 3 ml NEB Q4HRRT PRN PRN Reason: Shortness Of Breath/wheezing Last Admin: 08/13/19 08:45 Dose: 3 ml Azithromycin (Zithromax) 250 mg PO Q24H [facility] Last Admin: 08/13/19 08:49 Dose: 250 mg Buspirone HCl (Buspar) 10 mg PO BID PRN PRN Reason: Anxiety Escitalopram Oxalate (Lexapro) 15 mg PO DAILY [facility] Last Admin: 08/13/19 08:49 Dose: 15 mg Heparin Sodium (Porcine) (Heparin Sodium) 5,000 units SUBCUT Q8H [facility] Last Admin: 08/13/19 08:47 Dose: 5,000 units Lactated Ringer's (Ringers, Lactated) 1,000 mls @ 125 mls/hr IV ASDIRECTED [facility] Last Admin: 08/13/19 08:07 Dose: 125 mls/hr Pantoprazole Sodium 40 mg/ (Sodium Chloride) 10 mls @ 300 mls/hr IV BID [facility] Last Admin: 08/13/19 08:07 Dose: 300 mls/hr Melatonin (Melatonin) 9 mg PO BEDTIME PRN PRN Reason: Insomnia Methylprednisolone Sodium Succinate (Solu-Medrol) 40 mg IVPUSH Q8H [facility] Last Admin: 08/13/19 04:04 Dose: 40 mg Melatonin/Pyridoxine Hcl (B6) [Melatonin 5 Mg Tablet] 2 each PO BEDTIME PRN PRN Reason: Insomnia Discontinued Medications Albuterol/Ipratropium (Duoneb 3.0-0.5 Mg/3 Ml) 3 ml NEB ONETIME ONE Stop: 08/11/19 14:12 Last Admin: 08/11/19 14:34 Dose: 3 ml Albuterol/Ipratropium (Duoneb 3.0-0.5 Mg/3 Ml) 3 ml NEB ONETIME ONE Stop: 08/11/19 14:14 Last Admin: 08/11/19 14:35 Dose: 3 ml Albuterol/Ipratropium (Duoneb 3.0-0.5 Mg/3 Ml) 3 ml NEB ONETIME ONE Stop: 08/11/19 14:14 Last Admin: 08/11/19 14:43 Dose: 3 ml Azithromycin (Zithromax) 500 mg PO NOW STA Stop: 08/11/19 14:12 Last Admin: 08/11/19 14:32 Dose: 500 mg Dexamethasone (Dexamethasone) 16 mg PO ONETIME ONE Stop: 08/11/19 14:12 Last Admin: 08/11/19 14:31 Dose: 16 mg Escitalopram Oxalate (Lexapro) 15 mg PO DAILY [facility] Last Admin: 08/12/19 09:06 Dose: Not Given Lactated Ringer's (Ringers, Lactated) 500 mls @ 999.99 mls/hr IV .BOLUS ONE Stop: 08/12/19 10:03 Last Admin: 08/12/19 09:49 Dose: 999.99 mls/hr Lorazepam (Ativan) 0.5 mg IVPUSH ONETIME ONE Stop: 08/11/19 19:38 Last Admin: 08/11/19 20:26 Dose: 0.5 mg Morphine Sulfate (Morphine) 1 mg IVPUSH Q3H PRN PRN Reason: Pain (severe 7-10) Stop: 08/12/19 16:03 Non-Formulary Medication (Buspirone) 10 mg PO BID PRN PRN Reason: Anxiety Pantoprazole Sodium (Protonix Iv) 40 mg IV Q12HR [facility] Last Admin: 08/11/19 21:01 Dose: 40 mg
== END 2019-08-13 14:50 | disposition home or self-care (01) ==
LOC: MW.ED 13:50 → UNDOADMOB 16:00 → MW.MS 16:00
PROVIDERS: ADMIT Student in an Organized Health Care Education/Training Program; ATTEND Student in an Organized Health Care Education/Training Program
DX: J44.1 Chronic obstructive pulmonary disease with (acute) exacerbation (principal); J96.01 Acute respiratory failure with hypoxia; F41.9 Anxiety disorder, unspecified; F32.9 Major depressive disorder, single episode, unspecified; Z87.891 Personal history of nicotine dependence; Z79.899 Other long term (current) drug therapy
CPT/HCPCS: 36415; 71046; 80048; 83735; 84100; 84484; 85025; 93005; 94640; 96361; 96372; 96374; 96375; 96376; 99285; A9270; C9113; G0378; J1644; J2060; J2920; J7050; J7120; J8540; 99283; J7620-GY